=== PATIENT | male | born 1930 | race Caucasian/White ===

== ENCOUNTER 2016-12-12 09:44 | Emergency (ER) | payer MEDICARE, OTHER ==
[~2016-12-12] VITALS: Ht 175.3 cm; Wt 102.1 kg
[~2016-12-12 09:44] MED LIST: ACETAMINOPHEN325 M1 PO; CITRUCEL479 GM PO; COSAMIN DS CAP1 EACH PO; LOVENOX60 MG SUB-Q; MEMANTINE HCL5 MG PO; MULTI VITAMIN1 EACH PO; OXYCODONE HCL10 MG PO; PERCOCET 5-3251 EACH PO; POLYETHYLENE G255 GM PO; PRILOSEC20 MG PO; PRILOSEC40 MG PO; PROVENTIL HFA6.7 GM INH; VESICARE5 MG PO; WARFARIN SODIU7.5 MG PO; WARFARIN SODIUM5 MG PO
[2016-12-12] MEDS ORDERED: NORCO 5-325 TA1 EACH PO (11:00)
== END 2016-12-12 11:12 | disposition home or self-care (01) ==
LOC: ED 09:44
DX: M79.671 Pain in right foot (principal); I48.91 Unspecified atrial fibrillation; K21.9 Gastro-esophageal reflux disease without esophagitis; E78.5 Hyperlipidemia, unspecified; Z87.891 Personal history of nicotine dependence; Z88.5 Allergy status to narcotic agent; Z79.891 Long term (current) use of opiate analgesic; Z79.899 Other long term (current) drug therapy
CPT/HCPCS: 36415; 73630; 84550; 96372; 99283; J1885

== ENCOUNTER 2017-12-20 12:21 | Emergency (ER) | payer MEDICARE, OTHER ==
[~2017-12-20] VITALS: Ht 175.3 cm; Wt 102.1 kg
[~2017-12-20 12:21] MED LIST changes: +NORCO 5-325 TA1 EACH PO
[2017-12-20] MEDS ORDERED: DULCOLAX STOOL100 M1 PO (13:56)
[2017-12-20] MEDS ORDERED: ENULOSE10 GM/15 M PO (13:56)
== END 2017-12-20 14:49 | disposition home or self-care (01) ==
LOC: ED 12:21
DX: K59.00 Constipation, unspecified (principal); K21.9 Gastro-esophageal reflux disease without esophagitis; Z88.5 Allergy status to narcotic agent; Z88.8 Allergy status to other drugs, medicaments and biological substances; Z79.01 Long term (current) use of anticoagulants; Z79.899 Other long term (current) drug therapy
CPT/HCPCS: 74022; 99283

== ENCOUNTER 2018-03-08 10:07 | Emergency (ER) | payer MEDICARE, OTHER ==
[~2018-03-08] VITALS: Ht 175.3 cm; Wt 102.1 kg
--- OUTSIDE RECORDS SUMMARY | ~2018-03-08 | XMS | Clinical Summary ---
Demographics + + + | Address | [address] | | | [place] [address] | + + + | Home Phone | | + + + | Preferred Language | Unknown | + + + | Marital Status | | + + + | Bahai Affiliation | 1028 | + + + | Race | Unknown | + + + | Ethnic Group | Unknown | + + + Author + + + | Author | [facility] | | | and [place] | + + + | Organization | [facility] | | | and [place]ana [...] Team Providers + +------+ + | Care Beading Machine Operator Name | Role | Phone | + [...]
--- OUTSIDE RECORDS SUMMARY | ~2018-03-08 | XMS | Clinical Summary ---
Demographics + + + | Address | [address] | | | [place] [address] | + + + | Home Phone | | + + + | Preferred Language | Unknown | + + + | Marital Status | | + + + | Sabianist Affiliation | 1028 | + + + | Race | Unknown | + + + | Ethnic Group | Unknown | + + + Author + + + | Author | [facility] | | | and [place] | + + + | Organization | [facility] | | | and [place]ana [...] Team Providers + +------+ + | Care Driller'S Offsider Name | Role | Phone | + [...]
[~2018-03-08 10:07] MED LIST changes: +DULCOLAX STOOL100 M1 PO; +ENULOSE10 GM/15 M PO
[2018-03-08] MEDS ORDERED: PREDNISONE20 MG PO (12:39)
[2018-03-08] MEDS ORDERED: DOXYCYCLINE HY100 MG PO (12:39)
== END 2018-03-08 13:20 | disposition home or self-care (01) ==
LOC: ED 10:07
DX: S51.012A Laceration without foreign body of left elbow, initial encounter (principal); S80.02XA Contusion of left knee, initial encounter; J44.1 Chronic obstructive pulmonary disease with (acute) exacerbation; R53.1 Weakness; Z88.5 Allergy status to narcotic agent; Z88.7 Allergy status to serum and vaccine; Z79.01 Long term (current) use of anticoagulants; Z79.899 Other long term (current) drug therapy; W19.XXXA Unspecified fall, initial encounter
CPT/HCPCS: 70450; 71046; 73560; 80053; 85025; 85610; 94640; 99284; J7512

== ENCOUNTER 2018-09-03 09:26 | Emergency (ER) | payer MEDICARE, OTHER ==
[~2018-09-03] VITALS: Ht 175.3 cm; Wt 102.1 kg
--- OUTSIDE RECORDS SUMMARY | ~2018-09-03 | XMS | Encounter Summary ---
Demographics + + + | Address | [address] | | | [place] [address] | + + + | Home Phone | | + + + | Preferred Language | Unknown | + + + | Marital Status | | + + + | Latter Day Affiliation | Unknown | + + + | Race | Unknown | + + + | Ethnic Group | Unknown | + + + Author + + + | Author | [facility] | + + + | Organization | [facility] | + + + | Address | Unknown | + + + | Phone | Unavailable | + + + Support + + +---------+ + | Name | Relationship | Address | Phone | + + +---------+ + | Tiffany Granados | ECON | Unknown | | + + +---------+ + Care Team Providers + +------+ + | Care Patient Financial Services Coordinator Name | Role | Phone | + +------+ + PCP | Unavailable | + +------+ + Encounter Details +--------+ + + + + | Date | Type | Department | Care Team | Description | +--------+ + + + + | 07/08/ | Ancillary | [facility] | Ibrahima Hooper, | Congestive heart | | 2019 | Orders | ECHO | [address], | failure, unspecified | | | | | [address], | HF chronicity, | | | | | [place] [address] | unspecified heart | | | | | [phone] | failure type (HCC) | | | | | | | +--------+ + + + + Social History + +-------+ +--------+------+ | Tobacco Use | Types | Packs/Day | Years | Date | | | | | Used | | + +-------+ +--------+------+ | Never Assessed | | | | | + +-------+ +--------+------+ + + + | Sex Assigned at | Date Recorded | | | | + + + | Not on file | | + + + as of this encounter Plan of Treatment +--------+ + + + + | Date | Type | Specialty | Care Team | Description | +--------+ + + + + | 10/23/ | Initial | Cardiology | Jhonatan Villareal, | | | 2019 | consult | | MD [address] | | | | | | Dr [address] | | | | | | [place] [address] | | | | | | [phone] | | | | | | | | +--------+ + + + + as of this encounter Results ECHO outside interpretation standard (07/08/2018 5:35 PM) + + + | Impressions | Performed At | + + + | 1. Overall left ventricular systolic function is normal with, an EF | [facility] | | between 60 - 65 %. Normal left ventricular cavity size and wall | RADIOLOGY | | thickness. 2. The right ventricle is mildly enlarged. 3. The left | | | atrium is moderately enlarged. The right atrium is moderately enlarged | | | 4. There is mild aortic regurgitation. 5. Mild mitral regurgitation | | | is present. 6. The right ventricular systolic pressure (pulmonary | | | artery systolic pressure), as measured by Doppler, is 48.66mmHg. | | + + + + + + | Narrative | Performed At | + + + | Patient Name: Diallo Granados Date of : 1930 | [facility] | | Performing Physician: AYANNA CARMEN MD | RADIOLOGY | | | | | INDICATIONS CHF CONCLUSIONS 1. Overall | | | left ventricular systolic function is normal with, an EF between 60 - | | | 65 %. Normal left ventricular cavity size and wall thickness. 2. | | | The right ventricle is mildly enlarged. 3. The left atrium is | | | moderately enlarged. The right atrium is moderately enlarged 4. There | | | is mild aortic regurgitation. 5. Mild mitral regurgitation is | | | present. 6. The right ventricular systolic pressure (pulmonary artery | | | systolic pressure), as measured by Doppler, is 48.66mmHg. | | | FINDINGS -------- ECG rhythm: Atrial fibrillation. Study: A | | | 2-dimensional transthoracic echocardiogram with m-mode, spectral and | | | color flow Doppler was perfomed. Study: This was a technically | | | adequate study. Left Ventricle: Overall left ventricular systolic | | | function is normal with, an EF between 60 - 65 %. Left Ventricle: | | | The left ventricle cavity size is normal. Left Ventricle: Left | | | ventricular wall thickness is normal. Right Ventricle: The right | | | ventricle is mildly enlarged. Right Ventricle: The right ventricular | | | systolic function is normal. Left Atrium: The left atrium is | | | moderately enlarged. Right Atrium: The right atrium is moderately | | | enlarged. Aortic Valve: Aortic valve is mildly thickened. Aortic | | | Valve: The aortic valve is mildly calcified. Aortic Valve: There is | | | mild aortic regurgitation. Aortic Valve: There is no evidence of | | | aortic stenosis. Aortic Valve: The aortic valve appears to be | | | trileaflet. Mitral Valve: Normal appearing mitral valve. Mitral | | | Valve: Mild mitral regurgitation is present. Tricuspid Valve: The | | | tricuspid valve appears structurally normal. Tricuspid Valve: Mild | | | tricuspid regurgitation present. Tricuspid Valve: The right | | | ventricular systolic pressure (pulmonary artery systolic pressure), as | | | measured by Doppler, is 48.66mmHg. Pulmonic Valve: The pulmonic | | | valve was not well visualized. Pulmonic Valve: Trace pulmonic | | | regurgitation. Pericardium: There is no pericardial effusion. | | | IVC/Hepatic Veins: The inferior vena cava is normal in size and | | | collapses > 50 % with sniff, indicating normal central venous | | | pressures. Aorta: The aortic root, ascending aorta and aortic arch | | | are normal. Mass: No mass visualized Thrombus: No clot visualized | | | Thrombus: No vegetation visualized. Septum: No ASD observed. | | | Septum: No VSD observed. MEASUREMENTS Ao asc: | | | 3.13 cm Ao sinus: 3.[address] junct: 2.36 cm IVC: | | | 2.54 cm LA Diam: 5.45 cm EDV(Teich): 92.57 ml IVSd: | | | 0.81 cm LVIDd: 4.50 cm LVPWd: 0.83 cm %FS: 26.04 % | | | EF(Teich): 51.27 % ESV(Teich): 45.10 ml LVIDs: 3.32 cm | | | SV(Teich): 47.47 ml RVIDd: 4.05 cm LVEF MOD A2C: 58.12 % | | | SV MOD A2C: 41.77 ml LVEF MOD A4C: 57.02 % SV MOD A4C: | | | 43.17 ml EF Biplane: 56.43 % LVEDV MOD BP: 73.83 ml LVESV | | | MOD BP: 32.16 ml LVEDV MOD A2C: 71.87 ml LVLd A2C: 6.94 | | | cm LVEDV MOD A4C: 75.71 ml LVLd A4C: 6.91 cm LVESV MOD | | | A2C: 30.09 ml LVLs A2C: 6.11 cm LVESV MOD A4C: 32.53 ml | | | LVLs A4C: 5.75 cm LAESV(A-L): 102.79 ml LAESV Index | | | (A-L): 46.51 ml/m2 LAAs A2C: 27.92 cm2 LAESV A-L A2C: | | | 95.87 ml LALs A2C: 6.90 cm LAAs A4C: 25.79 cm2 LAESV A-L | | | A4C: 94.92 ml LALs A4C: 5.94 cm RAAs: 26.13 cm2 RAESV | | | A-L: 89.64 ml RAESV MOD: 89.03 ml RALs: 6.46 cm | | | TAPSE: 1.89 cm AV maxP.92 mmHg AV meanP.80 mmHg | | | AV Vmax: 1.40 m/s AV Vmean: 1.05 m/s AV VTI: 26.32 cm | | | LVOT maxP.81 mmHg LVOT meanP.69 mmHg LVOT Vmax: | | | 0.83 m/s LVOT Vmean: 0.63 m/s LVOT VTI: 17.19 cm MV E | | | Shiva: 1.08 m/s MV DecT: 161.11 ms Septal e': 0.08 m/s | | | Septal E/e': 12.16 Lateral e': 0.11 m/s Lateral E/e': | | | 9.62 RAP: 5 mmHg RVSP: 48.66 mmHg TR maxP.66 mmHg | | | TR Vmax: 3.30 m/s RV s': 0.10 m/s Appointment Coordinator: DESEAN | | | Authenticated by: AYANNA CARMEN MD Report Date/Time: -- | | | [id number] | | + + + + + | Procedure Note | + + | Travis, Rad Results In - 07/09/2018 6:01 PM PST Patient Name: Cee Granados of | | : 1930ccession: [id number] Physician: AYANNA CARMEN MD | | INDICATIONS CHF | | CONCLUSIONS 1. Overall left ventricular systolic function is normal with, an | | EF between 60 - 65 %. Normal left ventricular cavity size and wall thickness. 2. The | | right ventricle is mildly enlarged.3. The left atrium is moderately enlarged. The right | | atrium is moderately enlarged4. There is mild aortic regurgitation.5. Mild mitral | | regurgitation is present.6. The right ventricular systolic pressure (pulmonary artery | | systolic pressure), as measured by Doppler, is 48.66mmHg.FINDINGS--------ECG rhythm: | | Atrial fibrillation.Study: A 2-dimensional transthoracic echocardiogram with m-mode, | | spectral and color flow Doppler was perfomed. Study: This was a technically adequate | | study.Left Ventricle: Overall left ventricular systolic function is normal with, an EF | | between 60 - 65 %. Left Ventricle: The left ventricle cavity size is normal. Left | | Ventricle: Left ventricular wall thickness is normal.Right Ventricle: The right | | ventricle is mildly enlarged. Right Ventricle: The right ventricular systolic function | | is normal.Left Atrium: The left atrium is moderately enlarged.Right Atrium: The right | | atrium is moderately enlarged.Aortic Valve: Aortic valve is mildly thickened. Aortic | | Valve: The aortic valve is mildly calcified. Aortic Valve: There is mild aortic | | regurgitation. Aortic Valve: There is no evidence of aortic stenosis. Aortic Valve: The | | aortic valve appears to be trileaflet.Mitral Valve: Normal appearing mitral valve. | | Mitral Valve: Mild mitral regurgitation is present.Tricuspid Valve: The tricuspid valve | | appears structurally normal. Tricuspid Valve: Mild tricuspid regurgitation present. | | Tricuspid Valve: The right ventricular systolic pressure (pulmonary artery systolic | | pressure), as measured by Doppler, is 48.66mmHg.Pulmonic Valve: The pulmonic valve was | | not well visualized. Pulmonic Valve: Trace pulmonic regurgitation.Pericardium: There is | | no pericardial effusion.IVC/Hepatic Veins: The inferior vena cava is normal in size and | | collapses > 50 % with sniff, indicating normal central venous pressures.Aorta: The | | aortic root, ascending aorta and aortic arch are normal.Mass: No mass | | visualizedThrombus: No clot visualized Thrombus: No vegetation visualized.Septum: No ASD | | observed. Septum: No VSD observed.MEASUREMENTS Ao asc: 3.13 cmAo sinus: | | 3.[address] junct: 2.36 cmIVC: 2.54 cmLA Diam: 5.45 cmEDV(Teich): 92.57 | | mlIVSd: 0.81 cmLVIDd: 4.50 cmLVPWd: 0.83 cm%FS: 26.04 %EF(Teich): 51.27 | | %ESV(Teich): 45.10 mlLVIDs: 3.32 cmSV(Teich): 47.47 mlRVIDd: 4.05 cmLVEF MOD | | A2C: 58.12 %SV MOD A2C: 41.77 mlLVEF MOD A4C: 57.02 %SV MOD A4C: 43.17 mlEF | | Biplane: 56.43 %LVEDV MOD BP: 73.83 mlLVESV MOD BP: 32.16 mlLVEDV MOD A2C: 71.87 | | mlLVLd A2C: 6.94 cmLVEDV MOD A4C: 75.71 mlLVLd A4C: 6.91 cmLVESV MOD A2C: 30.09 | | mlLVLs A2C: 6.11 cmLVESV MOD A4C: 32.53 mlLVLs A4C: 5.75 cmLAESV(A-L): 102.79 | | mlLAESV Index (A-L): 46.51 ml/m2LAAs A2C: 27.92 [id number] A-L A2C: 95.87 mlLALs | | A2C: 6.90 cmLAAs A4C: 25.79 [id number] A-L A4C: 94.92 mlLALs A4C: 5.94 cmRAAs: | | 26.13 [id number] A-L: 89.64 mlRAESV MOD: 89.03 mlRALs: 6.46 cmTAPSE: 1.89 cmAV | | maxP.92 mmHgAV meanP.80 mmHgAV Vmax: 1.40 m/Manny Vmean: 1.05 m/Manny VTI: | | 26.32 cmLVOT maxP.81 mmHgLVOT meanP.69 mmHgLVOT Vmax: 0.83 m/sLVOT Vmean: | | 0.63 m/sLVOT VTI: 17.19 cmMV E Shiva: 1.08 m/sMV DecT: 161.11 msSeptal e': 0.08 | | m/sSeptal E/e': 12.16 Lateral e': 0.11 m/sLateral E/e': 9.62 RAP: 5 mmHgRVSP: | | 48.66 mmHgTR maxP.66 mmHgTR Vmax: 3.30 m/sRV s': 0.10 m/sSonographer: | | DBSAuthenticated by: AYANNA CARMEN MDReport Date/Time: -- | | [id number]:59:31IMPRESSION:1. Overall left ventricular systolic function is normal | | with, an EF between 60 - 65 %. Normal left ventricular cavity size and wall thickness. | | 2. The right ventricle is mildly enlarged.3. The left atrium is moderately enlarged. The | | right atrium is moderately enlarged4. There is mild aortic regurgitation.5. Mild mitral | | regurgitation is present.6. The right ventricular systolic pressure (pulmonary artery | | systolic pressure), as measured by Doppler, is 48.66mmHg. | |Septum: No VSD observed. | | | |MEASUREMENTS | | | |Ao asc: 3.13 cm | |Ao sinus: 3.50 cm | |Ao st junct: 2.36 cm | |IVC: 2.54 cm | |LA Diam: 5.45 cm | |EDV(Teich): 92.57 ml | |IVSd: 0.81 cm | |LVIDd: 4.50 cm | |LVPWd: 0.83 cm | |%FS: 26.04 % | |EF(Teich): 51.27 % | |ESV(Teich): 45.10 ml | |LVIDs: 3.32 cm | |SV(Teich): 47.47 ml | |RVIDd: 4.05 cm | |LVEF MOD A2C: 58.12 % | |SV MOD A2C: 41.77 ml | |LVEF MOD A4C: 57.02 % | |SV MOD A4C: 43.17 ml | |EF Biplane: 56.43 % | |LVEDV MOD BP: 73.83 ml | |LVESV MOD BP: 32.16 ml | |LVEDV MOD A2C: 71.87 ml | |LVLd A2C: 6.94 cm | |LVEDV MOD A4C: 75.71 ml | |LVLd A4C: 6.91 cm | |LVESV MOD A2C: 30.09 ml | |LVLs A2C: 6.11 cm | |LVESV MOD A4C: 32.53 ml | |LVLs A4C: 5.75 cm | |LAESV(A-L): 102.79 ml | |LAESV Index (A-L): 46.51 ml/m2 | |LAAs A2C: 27.92 cm2 | |LAESV A-L A2C: 95.87 ml | |LALs A2C: 6.90 cm | |LAAs A4C: 25.79 cm2 | |LAESV A-L A4C: 94.92 ml | |LALs A4C: 5.94 cm | |RAAs: 26.13 cm2 | |RAESV A-L: 89.64 ml | |RAESV MOD: 89.03 ml | |RALs: 6.46 cm | |TAPSE: 1.89 cm | |AV maxP.92 mmHg | |AV meanP.80 mmHg | |AV Vmax: 1.40 m/s | |AV Vmean: 1.05 m/s | |AV VTI: 26.32 cm | |LVOT maxP.81 mmHg | |LVOT meanP.69 mmHg | |LVOT Vmax: 0.83 m/s | |LVOT Vmean: 0.63 m/s | |LVOT VTI: 17.19 cm | |MV E Shiva: 1.08 m/s | |MV DecT: 161.11 ms | |Septal e': 0.08 m/s | |Septal E/e': 12.16 | |Lateral e': 0.11 m/s | |Lateral E/e': 9.62 | |RAP: 5 mmHg | |RVSP: 48.66 mmHg | |TR maxP.66 mmHg | |TR Vmax: 3.30 m/s | |RV s': 0.10 m/s | | | |Appointment Coordinator: DBS | |Authenticated by: AYANNA CARMEN MD | |Report Date/Time: -- [id number]:31 | | | |IMPRESSION: | |1. Overall left ventricular systolic function is normal with, an EF between 60 - 65 %. Norm al left ventricular cavity size and wall thickness. | |2. The right ventricle is mildly enlarged. | |3. The left atrium is moderately enlarged. The right atrium is moderately enlarged | |4. There is mild aortic regurgitation. | |5. Mild mitral regurgitation is present. | |6. The right ventricular systolic pressure (pulmonary artery systolic pressure), as measure d by Doppler, is 48.66mmHg. | + + + + + + + | Performing | Address | City/State/Zipcode | Phone Number | | Organization | | | | + + + + + | [facility] | [address] | [place] [address] | | + + + + + in this encounter Visit Diagnoses + + | Diagnosis | + + | Congestive heart failure, unspecified HF chronicity, unspecified heart failure type | | (HCC) | + +"
--- OUTSIDE RECORDS SUMMARY | ~2018-09-03 | XMS | Clinical Summary ---
Demographics + + + | Address | [address] | | | [place] [address] | + + + | Home Phone | | + + + | Preferred Language | Unknown | + + + | Marital Status | | + + + | Taoism Affiliation | 1028 | + + + | Race | Unknown | + + + | Ethnic Group | Unknown | + + + Author + + + | Author | [facility] | | | and [place] | + + + | Organization | [facility] | | | and [place] | + + + | Address | Unknown | + + + | Phone | Unavailable | + + + Support + + +---------+ + | Name | Relationship | Address | Phone | + + +---------+ + | MARLEY DONATO | ECON | Unknown | | + + +---------+ + Care Team Providers + +------+ + | Care Roof Promenade Tile Setter Name | Role | Phone | + +------+ + PP | Unavailable | + +------+ + Allergies Not on File Current Medications Not on file Active Problems Not on file Social History + +-------+ +--------+------+ | Tobacco [...] on file | | + + + Plan of Treatment + + + + + | Health Maintenance | Due Date | Last Done | Comments | + + + + + | Vaccine: | | | | | Dtap/Tdap/Td (1 - | 0 | | | | Tdap) | | | | + + + + + | Vaccine: Zoster (1 | | | | | of 2) | 1 | | | + + + + + | Vaccine: | | | | | Pneumococcal 65+ | 6 | | | | Low/Medium Risk (1 | | | | | of 2 - PCV13) | | | | + + + + + | Vaccine: Influenza | | | | | (#1) | 8 | | | + + + + + Results Not on filefrom Last 3 Months"
--- OUTSIDE RECORDS SUMMARY | ~2018-09-03 | XMS | Encounter Summary ---
Demographics + + + | Address | [address] | | | [place] [address] | + + + | Home Phone | | + + + | Preferred Language | Unknown | + + + | Marital Status | | + + + | Moravian Affiliation | Unknown | + + + | Race | Unknown | + + + | Ethnic Group | Unknown | + + + Author + + + | Author | [facility] | + + + | Organization | [facility] | + + + | Address | Unknown | + + + | Phone | Unavailable | + + + Support + + +---------+ + | Name | Relationship | Address | Phone | + + +---------+ + | Tiffany Granados | ECON | Unknown | | + + +---------+ + Care Team Providers + +------+ + | Care Excelsior Machine Feeder Name | Role | Phone | + [...] chronicity, | | | | | [place] [address] | unspecified heart | | | | | [phone] | failure type (HCC) | | | [...] [place] | | | | | | [place] [address] | | | | | | [phone] | | | | | | | [...] Diallo Granados Date of : 1930 | [facility] | | Performing Physician: AYANNA CARMEN MD [...] Vmax: 3.30 m/s RV s': 0.10 m/s Soft Iron Inspector: DESEAN | | | Authenticated by: AYANNA CARMEN MD Report Date/Time: -- | | | [id number]:31 | | + + + + + | Procedure Note | + + | Travis, Rad Results In - 07/09/2018 6:01 PM PST Patient Name: Cee Granados of | | : 1930ccession: [id number] Physician: AYANNA CARMEN MD | | INDICATIONS [...] mlLAESV Index (A-L): 46.51 ml/m2LAAs A2C: 27.92 [id number] A-L A2C: 95.87 mlLALs | | A2C: 6.90 cmLAAs A4C: 25.79 qn1HRCZB A-L A4C: 94.92 mlLALs A4C: 5.94 cmRAAs: | | 26.13 [id number] A-L: 89.64 mlRAESV MOD: 89.03 mlRALs: 6.46 [...] AYANNA CARMEN MDReport Date/Time: -- | | [id number]:31IMPRESSION:1. Overall left ventricular systolic function is normal [...] |RV s': 0.10 m/s | | | |Soft Iron Inspector: DBS | |Authenticated by: AYANNA CARMEN MD | |Report Date/Time: -- [id number]:31 | | | |IMPRESSION: | |1. Overall [...] [facility] | [address] | [place] [address] | | + + + + + in this encounter Visit Diagnoses + + | Diagnosis | + + | Congestive heart failure, unspecified HF chronicity, unspecified heart failure type | | (HCC) | + +"
--- OUTSIDE RECORDS SUMMARY | ~2018-09-03 | XMS | Clinical Summary ---
Demographics + + + | Address | [address] | | | [place] [address] | + + + | Home Phone | | + + + | Preferred Language | Unknown | + + + | Marital Status | | + + + | Mosque Affiliation | Unknown | + + + | Race | Unknown | + + + | Ethnic Group | Unknown | + + + Author + + + | Author | [facility] | + + + | Organization | [facility] | + + + | Address | Unknown | + + + | Phone | Unavailable | + + + Support + + +---------+ + | Name | Relationship | Address | Phone | + + +---------+ + | Tiffany Donato | ECON | Unknown | | + + +---------+ + Care Team Providers + +------+ + | Care Graphic Design Specialist Name | Role | Phone | + +------+ + PP | Unavailable | + +------+ + Allergies Not on File Current Medications Not on file Active Problems Not on file Encounters +--------+ + + + + | Date | Type | Specialty | Care Team | Description | +--------+ + + + + | 07/16/ | Documentati | | Jhonatan Villareal, | | | 2018 | on Only | | MD | | +--------+ + + + + | 07/08/ | Ancillary | | Ibrahima Hooper, | Congestive heart | | 2018 | Procedure | | MD | failure, unspecified | | | | | | HF chronicity, | | | | | | unspecified heart | | | | | | failure type (HCC) | +--------+ + + + + | 07/08/ | Ancillary | | Ibrahima Hooper, | Congestive heart | | 2019 | Orders | | MD | failure, unspecified | | | | | | HF chronicity, | | | | | | unspecified heart | | | | | | failure type (HCC) | +--------+ + + + + from Last 3 Months Social History + +-------+ +--------+------+ | Tobacco [...] | + + + Plan of Treatment +--------+ + + + + | Date | Type | Specialty | Care Team | Description | +--------+ + + + + | 10/23/ | Initial | | Jhonatan Villareal, | | | 2019 | consult | | MD [address] | | | | | | Dr [address], | | | | | | [place] [address] | | | | | | [phone] | | | | | | | | +--------+ + + + + + + + + + | Health [...] | | + + + + + Procedures + +--------+ + + + | Procedure Name | Priori | Date/Time | Associated Diagnosis | Comments | | | ty | | | | + +--------+ + + + | ECHO OUTSIDE | Routin | 07/08/2018 | Congestive heart | Results for this | | INTERPRETATION | e | 5:35 PM | failure, unspecified | procedure are in the | | STANDARD | | PST | HF chronicity, | results section. | | | | | unspecified heart | | | | | | failure type (HCC) | | + +--------+ + + + from Last 3 Months Results ECHO outside interpretation standard (07/08/2018 5:35 [...] | + + + | Patient Name: Elaine Donato Date of : 1930 | [facility] | | Performing Physician: AYANNA CARMEN [...] Vmax: 3.30 m/s RV s': 0.10 m/s Route Rider Supervisor: DESEAN | | | Authenticated by: AYANNA CARMEN MD Report Date/Time: -- | | | [id number]:31 | | + + + + + | Procedure Note | + + | Travis, Rad Results In - 07/09/2018 6:01 PM PST Patient Name: Cee Donato of | | : 1930ccession: [id number] Physician: AYANNA CARMEN MD | | INDICATIONS [...] mlLAESV Index (A-L): 46.51 ml/m2LAAs A2C: 27.92 [id number] A-L A2C: 95.87 mlLALs | | A2C: 6.90 cmLAAs A4C: 25.79 at6XJOEL A-L A4C: 94.92 mlLALs A4C: 5.94 cmRAAs: | | 26.13 [id number] A-L: 89.64 mlRAESV MOD: 89.03 mlRALs: 6.46 [...] AYANNA CARMEN MDReport Date/Time: -- | | [id number]:31IMPRESSION:1. Overall left ventricular systolic function is normal [...] |RV s': 0.10 m/s | | | |Route Rider Supervisor: DBS | |Authenticated by: AYANNA CARMEN MD | |Report Date/Time: -- [id number]:31 | | | |IMPRESSION: | |1. Overall [...] | + + + + + | [facility] | [address] | [place] [address] | | + + + + + from Last 3 Months Insurance + +--------+ +------+-------+ + | Payer | Benefi | Subscriber | Type | Phone | Address | | | t Plan | ID | | | | | | / | | | | | | | Group | | | | | + +--------+ +------+-------+ + | MEDICARE | MEDICA | [id number] | | | [address] | | | RE | | | | [place] [address] | | | IP-OP | | | | | + +--------+ +------+-------+ + | MULTIPLAN | MULTIP | [id number] | | | | | | KAREN - | | | | | | | MAIL | | | | | | | HANDLE | | | | | | | RS | | | | | | | BENEFI | | | | | | | T | | | | | + +--------+ +------+-------+ + + +--------+ +--------+ + + | Guarantor Name | Accoun | Relation to | Date | Phone | Billing Address | | | t Type | Patient | of | | | | | | | | | | + +--------+ +--------+ + + | ELAINE DONATO | Person | Self [birth year] Home: | [address] | | | al/Fam | | 1930 | [phone] [address] [place], [place] | | | kaden | | | [phone] | + +--------+ +--------+ + +"
--- OUTSIDE RECORDS SUMMARY | ~2018-09-03 | XMS | Encounter Summary ---
Demographics + + + | Address | [address] | | | [place] [address] | + + + | Home Phone | | + + + | Preferred Language | Unknown | + + + | Marital Status | | + + + | Muslim Affiliation | Unknown | + + + | Race | Unknown | + + + | Ethnic Group | Unknown | + + + Author + + + | Author | [facility] | + + + | Organization | [facility] | + + + | Address | Unknown | + + + | Phone | Unavailable | + + + Support + + +---------+ + | Name | Relationship | Address | Phone | + + +---------+ + | Tiffany Granados | ECON | Unknown | | + + +---------+ + Care Team Providers + +------+ + | Care Filling Machine Set Up Mechanic Name | Role | Phone | + +------+ + PCP | Unavailable | + +------+ + Encounter Details +--------+ + + + + | Date | Type | Department | Care Team | Description | +--------+ + + + + | 07/16/ | Documentati | [facility] Shepherd | Jhonatan Villareal, | | | 2018 | on Only | Genevieve Zhang | [address] | | | | | [address] | [address] [place], | | | | | [place], [place] | [place] [address] | | | | | [address] | [phone] | | | | | [phone] | | | +--------+ + + + [...] [place], | | | | | | [place] [address] | | | | | | [phone] | | | | | | | | +--------+ + + + + as of this encounter Visit Diagnoses Not on filein this encounter"
--- OUTSIDE RECORDS SUMMARY | ~2018-09-03 | XMS | Encounter Summary ---
Demographics + + + | Address | [address] | | | [place] [address] | + + + | Home Phone | | + + + | Preferred Language | Unknown | + + + | Marital Status | | + + + | Moravian Affiliation | Unknown | + + + | Race | Unknown | + + + | Ethnic Group | Unknown | + + + Author + + + | Author | [facility] | + + + | Organization | [facility] | + + + | Address | Unknown | + + + | Phone | Unavailable | + + + Support + + +---------+ + | Name | Relationship | Address | Phone | + + +---------+ + | Tiffany Granados | ECON | Unknown | | + + +---------+ + Care Team Providers + +------+ + | Care Assisted Living Assistant Name | Role | Phone | + +------+ + PCP | Unavailable | + +------+ + Encounter Details +--------+ + + + + | Date | Type | Department | Care Team | Description | +--------+ + + + + | 07/08/ | Ancillary | [facility] BORJAS | Ibrahima Hooper, | Congestive heart | | 2019 | Procedure | ECHO | [address], | failure, unspecified | | | | | [address] [place], | HF chronicity, | | | | | [place] [address] | unspecified heart | | | | | [phone] | failure type (HCC) | | | [...] [place] | | | | | | [place] [address] | | | | | | [phone] | | | | | | | | +--------+ + + + + as of this encounter Procedures + +--------+ + + + | [...] | | + +--------+ + + + in this encounter Results ECHO outside interpretation standard [...] Diallo Granados Date of : 1930 | [facility] | | Performing Physician: AYANNA CARMEN [...] Vmax: 3.30 m/s RV s': 0.10 m/s Tribal Delegate: DBS | | | Authenticated by: AYANNA CARMEN MD Report Date/Time: -- | | | [id number]:31 | | + + + + + | Procedure Note | + + | Jose Robles In - 07/09/2018 6:01 PM PST Patient Name: Cee Granados of | | : 1930ccession: [id number] Physician: AYANNA CARMEN MD | | INDICATIONS [...] mlLAESV Index (A-L): 46.51 ml/m2LAAs A2C: 27.92 [id number] A-L A2C: 95.87 mlLALs | | A2C: 6.90 cmLAAs A4C: 25.79 [id number] A-L A4C: 94.92 mlLALs A4C: 5.94 cmRAAs: | | 26.13 [id number] A-L: 89.64 mlRAESV MOD: 89.03 mlRALs: 6.46 [...] AYANNA CARMEN MDReport Date/Time: -- | | [id number]:31IMPRESSION:1. Overall left ventricular systolic function is normal [...] |RV s': 0.10 m/s | | | |Tribal Delegate: DBS | |Authenticated by: AYANNA CARMEN MD | |Report Date/Time: -- [id number]:31 | | | |IMPRESSION: | |1. Overall [...] | + + + + + | [facility] | [address] | [place] [address] | | + + + + + in this encounter Visit Diagnoses + + | Diagnosis | + + | Congestive heart failure, unspecified HF chronicity, unspecified heart failure type | | (HCC) | + +"
--- OUTSIDE RECORDS SUMMARY | ~2018-09-03 | XMS | Encounter Summary ---
Demographics + + + | Address | [address] | | | [place] [address] | + + + | Home Phone | | + + + | Preferred Language | Unknown | + + + | Marital Status | | + + + | Gnosticist Affiliation | Unknown | + + + | Race | Unknown | + + + | Ethnic Group | Unknown | + + + Author + + + | Author | [facility] | + + + | Organization | [facility] | + + + | Address | Unknown | + + + | Phone | Unavailable | + + + Support + + +---------+ + | Name | Relationship | Address | Phone | + + +---------+ + | Tiffany Granados | ECON | Unknown | | + + +---------+ + Care Team Providers + +------+ + | Care Sales Representative Health Insurance Name | Role | Phone | + +------+ + PCP | Unavailable | + +------+ + Encounter Details +--------+ + + + + | Date | Type | Department | Care Team | Description | +--------+ + + + + | 07/16/ | Documentati | MARSHALL hSepherd | Jhonatan Villareal, | | | 2018 | on Only | Genevieve Zhang | [address] | | | | | [address] | [address] [place], | | | | | [place], [place] | [place] [address] | | | | | [address] | [phone] | | | | | [phone] | | | +--------+ + + + [...] | | | | | | [place] [address] | | | | | | [phone] | | | | | | | | +--------+ + + + + as of this encounter Visit Diagnoses Not on filein this encounter"
--- OUTSIDE RECORDS SUMMARY | ~2018-09-03 | XMS | Encounter Summary ---
Demographics + + + | Address | [address] | | | [place] [address] | + + + | Home Phone | | + + + | Preferred Language | Unknown | + + + | Marital Status | | + + + | Yazidism Affiliation | Unknown | + + + | Race | Unknown | + + + | Ethnic Group | Unknown | + + + Author + + + | Author | [facility] | + + + | Organization | [facility] | + + + | Address | Unknown | + + + | Phone | Unavailable | + + + Support + + +---------+ + | Name | Relationship | Address | Phone | + + +---------+ + | Tiffany Granados | ECON | Unknown | | + + +---------+ + Care Team Providers + +------+ + | Care Interactive Developer Name | Role | Phone | + [...] chronicity, | | | | | [place] [address] | unspecified heart | | | | | [phone] | failure type (HCC) | | | [...] [place] | | | | | | [place] [address] | | | | | | [phone] | | | | | | | [...] Diallo Granados Date of : 1930 | [facility] | | Performing Physician: AYANNA CARMEN MD [...] Vmax: 3.30 m/s RV s': 0.10 m/s Caramel Candy Maker: DBS | | | Authenticated by: AYANNA CARMEN MD Report Date/Time: -- | | | [id number]:31 | | + + + + + | Procedure Note | + + | Jose Robles In - 07/09/2018 6:01 PM PST Patient Name: Cee Granados of | | : 1930ccession: [id number] Physician: AYANNA CARMEN MD | | INDICATIONS [...] mlLAESV Index (A-L): 46.51 ml/m2LAAs A2C: 27.92 [id number] A-L A2C: 95.87 mlLALs | | A2C: 6.90 cmLAAs A4C: 25.79 [id number] A-L A4C: 94.92 mlLALs A4C: 5.94 cmRAAs: | | 26.13 [id number] A-L: 89.64 mlRAESV MOD: 89.03 mlRALs: 6.46 [...] AYANNA CARMEN MDReport Date/Time: -- | | [id number]:59:31IMPRESSION:1. Overall left ventricular systolic function is normal [...] |RV s': 0.10 m/s | | | |Caramel Candy Maker: DBS | |Authenticated by: AYANNA CARMEN MD | |Report Date/Time: -- [id number]:59:31 | | | |IMPRESSION: | |1. Overall [...] | + + + + + | [facility] | [address] | [place] [address] | | + + + + + in this encounter Visit Diagnoses + + | Diagnosis | + + | Congestive heart failure, unspecified HF chronicity, unspecified heart failure type | | (HCC) | + +"
--- OUTSIDE RECORDS SUMMARY | ~2018-09-03 | XMS | Clinical Summary ---
Demographics + + + | Address | [address] | | | [place] [address] | + + + | Home Phone | | + + + | Preferred Language | Unknown | + + + | Marital Status | | + + + | Gnosticism Affiliation | 1028 | + + + | Race | Unknown | + + + | Ethnic Group | Unknown | + + + Author + + + | Author | [facility] | | | and Lonana | + + + | Organization | [facility] | | | and Lonana [...] Team Providers + +------+ + | Care Supervisor Production Name | Role | Phone | + [...]
--- OUTSIDE RECORDS SUMMARY | ~2018-09-03 | XMS | Clinical Summary ---
Demographics + + + | Address | [address] | | | [place] [address] | + + + | Home Phone | | + + + | Preferred Language | Unknown | + + + | Marital Status | | + + + | Spiritism Affiliation | Unknown | + + + | Race | Unknown | + + + | Ethnic Group | Unknown | + + + Author + + + | Author | [facility] | + + + | Organization | [facility] | + + + | Address | Unknown | + + + | Phone | Unavailable | + + + Support + + +---------+ + | Name | Relationship | Address | Phone | + + +---------+ + | Tiffany Donato | ECON | Unknown | | + + +---------+ + Care Team Providers + +------+ + | Care Family Living Educator Name | Role | Phone | + [...] [place], | | | | | | [place] [address] | | | | | | [phone] | | | | | | | [...] Elaine Donato Date of : 1930 | [facility] | | Performing Physician: AYANNA CARMEN [...] Vmax: 3.30 m/s RV s': 0.10 m/s Mandrel Press Hand: DESEAN | | | Authenticated by: AYANNA CARMEN MD Report Date/Time: -- | | | [id number]:31 | | + + + + + | Procedure Note | + + | Travis, Rad Results In - 07/09/2018 6:01 PM PST Patient Name: Cee Donato of | | : 1930ccession: [id number] Physician: AYANNA CARMEN MD | | INDICATIONS [...] mlLAESV Index (A-L): 46.51 ml/m2LAAs A2C: 27.92 [id number] A-L A2C: 95.87 mlLALs | | A2C: 6.90 cmLAAs A4C: 25.79 [id number] A-L A4C: 94.92 mlLALs A4C: 5.94 cmRAAs: | | 26.13 [id number] A-L: 89.64 mlRAESV MOD: 89.03 mlRALs: 6.46 [...] AYANNA CARMEN MDReport Date/Time: -- | | [id number]:59:31IMPRESSION:1. Overall left ventricular systolic function is normal [...] |RV s': 0.10 m/s | | | |Mandrel Press Hand: DBS | |Authenticated by: AYANNA CARMEN MD | |Report Date/Time: -- [id number]:59:31 | | | |IMPRESSION: | |1. Overall [...] [facility] | [address] | [place] [address] | | + + + + + [...] +------+-------+ + | MEDICARE | MEDICA | [id number] | | | [address] | | | RE | | | | [place] [address] | | | IP-OP | | | | | + +--------+ +------+-------+ + | MULTIPLAN | MULTIP | [id number] | | | | | | KAREN [...] Self | [birth year] | Home: | [address] | | | al/Fam | | 1930 | [phone] | [address] [place], [place] | | | [place] | | | [phone] | + +--------+ +--------+ + +"
[~2018-09-03 09:26] MED LIST changes: +DOXYCYCLINE HY100 MG PO; +MACROBID 100 M100 MG PO; +PREDNISONE20 MG PO
[2018-09-03] MEDS ORDERED: POTASSIUM CHLO20 ME1 PO (12:01)
[2018-09-03] MEDS ORDERED: FUROSEMIDE40 MG PO (12:01)
[2018-09-03] MEDS ORDERED: FAMOTIDINE40 MG PO (12:02)
[2018-09-03] MEDS ORDERED: JANTOVEN5 MG PO (12:02)
--- NOTE | 2018-09-03 19:56 | EKG ---
[facility] [address] [place] [address] Signed Atrial fibrillation Left axis deviation Right bundle branch block Inferior infarct , age undetermined Abnormal ECG When compared with ECG of 22-MAY-2016 11:26, Right bundle branch block has replaced Incomplete right bundle branch block Confirmed by JOE LOPEZ MD ([id number]) on 09/03/2018 7:56:14 PM Electronically Signed By: JOE LOPEZ MD 09/03/18 1956 PATIENT NAME: ELAINE DONATO Electrocardiogram DATE OF : 32 PHYSICIAN: JOE LOPEZ MD REPORT #: [id number] REPORT IS CONFIDENTIAL AND NOT TO BE RELEASED WITHOUT AUTHORIZATION
== END 2018-09-03 12:23 | disposition home or self-care (01) ==
LOC: ED 09:26
DX: I95.9 Hypotension, unspecified (principal); E86.0 Dehydration; I48.91 Unspecified atrial fibrillation; K21.9 Gastro-esophageal reflux disease without esophagitis; E78.5 Hyperlipidemia, unspecified; Z88.5 Allergy status to narcotic agent; Z91.09 Other allergy status, other than to drugs and biological substances; Z88.8 Allergy status to other drugs, medicaments and biological substances; Z79.01 Long term (current) use of anticoagulants; Z79.899 Other long term (current) drug therapy
CPT/HCPCS: 80053; 81001; 84484; 85025; 85610; 93005; 93010; 99285-25; J7030

== ENCOUNTER 2019-04-09 20:51 | Inpatient (IN) | payer MEDICARE, OTHER ==
[~2019-04-09] VITALS: Ht 175.3 cm; Wt 103.0 kg
[~2019-04-09 20:51] MED LIST changes: +CITALOPRAM HBR20 MG PO; +COUMADIN5 MG PO; +FAMOTIDINE40 MG PO; +FUROSEMIDE20 MG PO; +JANTOVEN5 MG PO; +K-TAB ER20 MEQ PO; +LASIX20 MG PO; +LEVOFLOXACIN750 MG PO; +OMEPRAZOLE40 MG PO; +POTASSIUM CHLO20 ME1 PO; +SERTRALINE HCL50 MG PO; +VITAMIN D31000 UNI1 PO
--- NOTE | 2019-04-10 01:55 | NUR ---
PT ARRIVED TO THE FLOOR. VS TAKEN. PRN PAIN MED PROVIDED. 3LNC, CPOX 90%. NO OTHER NEEDS AT THIS TIME. CALL LIGHT IN REACH.
--- NOTE | 2019-04-10 03:16 | NUR ---
PULSE OXIMETER ALARMING. SPO2 83%. PT AWAKENS EASILY TO VOICE, HOB ELEVATED. OXYGEN TITRATED TO 4L BY NC, SPO2 INCREASES TO 91% WITH CONT. PULSE OXIMETER. PT DROWSY, EYES CLOSED. CALL LIGHT IN REACH. BED ALARM ON.
--- NOTE | 2019-04-10 04:33 | NUR ---
PT RESTING IN BED. ASSESSMENT COMPLETED. CMS INTACT LLE. PAINFUL TO TOUCH OR MOVE. LLE EDEMA 2+, RLE EDEMA 3+. BRUISE ON LEFT ELBOW. PILLOWS USED FOR POSITION OF COMFORT. PT DROWSY AND FALLS ASLEEP FREQUENTLY. NO NEEDS AT THIS TIME. CALL LIGHT IN REACH.
--- NOTE | 2019-04-10 04:44 | NUR ---
PT BRIEF CHANGED. PT TOLERATED MOVEMENT POORLY. CPOX DOWN TO 80 DURING ACTIVITY. BACK UP TO 90% 4L NC AT REST. NO FURTHER NEEDS. CALL LIGHT IN REACH. BED ALARM ON.
--- NOTE | 2019-04-10 04:44 | NUR ---
PT BRIEF CHANGED. PT TOLERATED MOVEMENT POORLY. CPOX DOWN TO 80 DURING ACTIVITY. BACK UP TO 90% 6L NC AT REST. NO FURTHER NEEDS. CALL LIGHT IN REACH. BED ALARM ON.
--- NOTE | 2019-04-10 06:36 | NUR ---
PT SLEPT MOST OF SHIFT. CPOX 90% ON 4L NC. POSITIONED WITH PILLOWS TO SUPPORT HIP. PRN PAIN MEDS MANAGED PAIN WELL. CMS INTACT IN LEFT FOOT.
--- NOTE | 2019-04-10 07:05 | NUR ---
PATIENT SLEEPING IN BED. REPORT RECEIVED, ORDERS ACKNOWLEDGED. CPOX IN PLACE, 4LNC WITH SPO2 OF 94%. NS RUNNING AT 125 MLS/HR.
--- NOTE | 2019-04-10 08:20 | NUR ---
DR. OCAMPO IN ROOM WITH PATIENT. ASSESSMENT COMPLETE, WEAK RADIAL PULSES WITH A BP OF 90/51 (60). MD ORDER TO BOLUS REMAINING BAG OF NS AND RUN A BOLUS OF LR OVER AN HOUR, THEN RECHECK VITAL SIGNS. PATIENT REPORTS PAIN IN LEFT SHOULDER AND HAS RESTRICTED ROM ON LEFT SIDE. PATIENT IS CONFUSED, NOT ORIENTED TO PERSON, PLACE, OR TIME. WILL CONTINUE TO MONITOR.
--- NOTE | 2019-04-10 08:32 | NUR ---
JULIETTE RANGEL CALLED FOR UPDATE ON PT. PLAN OF CARE AND UPDATES DISCUSSED. REQUESTED POLST FORM AND MED REC TO BE FAXED TO HOSPITAL. BOTH RECIEVED. MED REC FAXED TO PHARMACY. POLST FORM PLACED IN CHART.
--- NOTE | 2019-04-10 09:30 | NUR ---
PATIENT BP REASSESSED AFTER LR BOLUS. MANUAL BP OF 72/46, WEAK RADIAL PULSES OF 80. DR. OCAMPO NOTIFIED. ADDITIONAL BOLUS OF LR ORDERED, ALONG WITH RIOS CATH. PATIENT DRAINING DARK YELLOW URINE. WILL CONTINUE TO MONITOR.
--- NOTE | 2019-04-10 10:45 | NUR ---
CALL RETURNED TO KAL OJEDA RN. UPDATE GIVEN REGARDING PATIENT CONDITION.
--- NOTE | 2019-04-10 11:15 | NUR ---
PATIENT SLEEPING IN BED WITH LR RUNNING AT 125 MLS/HR. BP OF 95/52, PULSE OF 80. 250 MLS OF LUCY URINE COLLECTED FROM RIOS. DR. OCAMPO NOTIFIED OF PATIENT CONDITION, WILL CONTINUE TO MONITOR.
[2019-04-10] MEDS ORDERED: LASIX20 MG PO (11:29)
[2019-04-10] MEDS ORDERED: NITROSTAT0.4 MG SL (11:37)
[2019-04-10] MEDS ORDERED: ASPERCREME 1035.4 GM TOP (11:38)
--- NOTE | 2019-04-10 11:39 | NUR ---
MED REC COMPLETE
--- NOTE | 2019-04-10 12:24 | NUR ---
PATIENT REPORTS PAIN OF 7/10, PRN PAIN MEDICATION GIVEN. LR RUNNING AT 125 MLS/HR. BP OF 109/59, PULSE OF 75 WITH STRONG RADIAL PULSES. PATIENT SITTING IN BED WATCHING TV. NO FURTHER NEEDS, CALL LIGHT WITHIN REACH.
--- NOTE | 2019-04-10 13:34 | NUR ---
RT IN ROOM TO ASSESS PATIENT. SPO2 OF 96% ON 4LNC. BP OF 120/69, WITH PULSE OF 67. RADIAL PULSES ARE FAINT AND THREADY. DR. OCAMPO UPDATED.
--- NOTE | 2019-04-10 13:49 | NUR ---
PATIENT RESTING IN BED. DAUGHTER IN ROOM. VITAL SIGNS AND I&O DONE.CALL LIGHT WITHIN REACH. NO OTHER NEEDS AT THIS TIME
--- NOTE | 2019-04-10 15:15 | NUR ---
PATIENT INCONTINENT OF STOOL, ATTENDS CHANGED. PATIENT REPORTS PAIN WITH MOVEMENT. SPO2 DROPPED TO 79% ON 4LNC WITH MOVEMENT. O2 INCREASED TO 6LNC, SPO2 CLIMBS TO 89%. DR OCAMPO AND CHARGE NURSE NOTIFIED. PATIENTS COLOR TURNED DUSKY DURING DESATURATION BUT RETURNED TO A PINK COLOR. OXYGEN TITRATED BACK DOWN TO 4LNC, SPO2 OF 91%. CALL LIGHT WITHIN REACH.
--- NOTE | 2019-04-10 15:51 | NUR ---
ORDER FOR UA. COLLECTED AND SENT TO LAB. IMAGING CALLED FOR CHEST XRAY.
--- NOTE | 2019-04-10 15:54 | NUR ---
Met with Diallo's daughter, Lisseth. Pt has had worsening dementia since the loss of his . Lives at [facility]. Daughter and siblings have been considering a chcf due his decline. Siblings live in the [place] area and have considered moving [place] to [place] to a [place] residence or a chcf. For now, would like him to go to [facility] on discharge.
--- NOTE | 2019-04-10 16:02 | NUR ---
IAMGING IN ROOM FOR CHEST XRAY.
--- NOTE | 2019-04-10 18:00 | NUR ---
DR OCAMPO NOTIFIED OF PATIENTS URINE OUTPUT. ORDER ACKNOWLEDGED TO GIVE 500 ML BOLUS OF LR AND CONTINUE LR AT 150 MLS/HR. PO INTAKE OF 400 MLS SINCE 1400. BP OF 102/57. WILL CONTINUE TO MONITOR.
--- NOTE | 2019-04-10 18:41 | NUR ---
LATE ENTRY FOR: 1400 REPOSITIONED AT 1400, NEW BED BLANKET PLACED UNDER HIM, WARM BLANKET PLACED AT LEFT HIP, OXYGEN TURNED UP TO 6L, SPO2 INCREASED TO 92%, HEAD ELEVATED TO 21%, PT DROWSY AND RESTING, DAUGHTER AT BEDSIDE, CALL LIGHT WITHIN REACH
--- NOTE | 2019-04-10 19:00 | NUR ---
SHIFT REPORT RECEIVED FROM [facility] СВЕТЛАНА MADERA AT BEDSIDE. PT RESTING IN BED, EYES CLOSED. RR WNL. CPOX IN PLACE, PT ON 6L OXYMASK. O2 SAT AND HR WNL. RIOS CATHETER IN PLACE. PT APPEARS COMFORTABLE, NO DISTRESS NOTED. CALL LIGHT IN REACH.
--- NOTE | 2019-04-10 19:40 | NUR ---
PT'S CPOX ALARMED, ASSISTED PT TO PUT OXYMASK BACK ON, HE DENIES FURTHER NEEDS. CALL LIGHT IS CLOSE.
--- NOTE | 2019-04-10 20:05 | NUR ---
PT'S IV PUMP WAS BEEPING, IT IS NOW INFUSING FINE. CALL LIGHT IS CLOSE. PT DENIES NEEDS.
--- NOTE | 2019-04-10 21:10 | NUR ---
CPOX WAS BEEPING, PLACED PT BACK ON OXYMASK. HE IS RESTING WITH EYES CLOSED. CALL LIGHT IS CLOSE.
--- NOTE | 2019-04-10 21:15 | NUR ---
PT PULSE OX ALARMING. WENT IN AND PUT OXY MASK BACK ON.
--- NOTE | 2019-04-10 21:45 | NUR ---
PT PULSE OX ALARMING. PUT MASK BACK ON. PT NOT WANTING TO WEAR IT.
--- NOTE | 2019-04-10 22:00 | NUR ---
PT PULSE OX ALARMING AGAIN. PUT OXY MASK BACK ON.
--- NOTE | 2019-04-10 22:00 | NUR ---
ASSESSMENT COMPLETE, MEDICATIONS GIVEN (SEE EMAR). PT APPEARS IN PAIN WITH MOVEMENT, FACIAL GRIMACING NOTED. PT DOES NOT VERBALLY RATE PAIN. SCHEDULED TYLENOL AND PRN OXYCODONE ADMINISTERED. PER TLEPHARMACY ILYA FERNANDES TO CRUSH SCHEDULED MEDS AND PRN OXYCODONE. PT TOLERATED MED ADMINISTRATION WELL, MEDS GIVEN IN PUDDING. NO DIFFICULTIES NOTED. WILL MONITOR. PT REPOSITONED IN BED. CPOX IN PLACE. VSS, PT ON 6L OXYMASK. 02 SAT AND HR WNL. CALL LIGHT IN REACH. BED ALARM ON FOR SAFETY.
--- NOTE | 2019-04-10 22:09 | NUR ---
PULSE OX GOING OFF AGAIN. PUT PT OXY MASK BACK ON.
--- NOTE | 2019-04-10 22:15 | NUR ---
PULSE OX ALARM GOING OFF AGAIN. PUT MASK BACK ON. PT TOLD ME I WAS " A PAIN IN HIS ASS"
--- NOTE | 2019-04-10 22:45 | NUR ---
ALARM GOING OFF AGAIN. PUT HIS OXY MASK BACK ON.
--- NOTE | 2019-04-10 23:00 | NUR ---
PULSE OX GOING OFF AGAIN. PUT MASK BACK ON.
--- NOTE | 2019-04-10 23:15 | NUR ---
PULSE OX ALARMING. PUT OXY MASK BACK ON. PT PULLED IT RIGHT BACK OFF. I PUT IT BACK ON AND EXPLAINED THAT HE NEEDED TO WEAR THIS. HE TOLD ME TO " GO TAKE A HIKE"
--- NOTE | 2019-04-10 23:30 | NUR ---
PULSE OX ALARM GOING OFF. I PUT HIS OXY MASK BACK ON HIM.
--- NOTE | 2019-04-10 23:55 | NUR ---
PULSE OX ALARMING, PUT PT'S OXY MASK BACK ON.
--- NOTE | 2019-04-11 00:05 | NUR ---
PT RESTING IN BED, EYES CLOSED. PT INTERMITTENTLY REMOVES OXYMASK FROM FACE, DESATS TO MID 80'S. RESOLVES WITH PLACEMENT OF OXYMASK. CPOX IN PLACE, O2 SAT AND HR WNL. NO DISTRESS NOTED. CALL LIGHT IN REACH.
--- NOTE | 2019-04-11 00:10 | NUR ---
CPOX BEEPING TRIED BLOWBY SINCE PT KEEPS TAKING OXYMASK OFF. DID NOT KEEP O2 SAT UP, PUT OXYMASK BACK IN PLACE. CALL LIGHT IS CLOSE.
--- NOTE | 2019-04-11 01:30 | NUR ---
PULSE OX ALARM GOING OFF. PUT OXY MASK BACK ON.
--- NOTE | 2019-04-11 02:00 | NUR ---
ASSESSMENT COMPLETE, NO NEW CHANGES OR CONCERNS. PT ON 6L OXYMASK, CPOX IN PLACE. PT REPEATEDLY REMOVES OXYMASK AND DESATS TO MID 80'S. PT DENIES PAIN AT THIS TIME, REPOSITONED IN BED WITH HELP FROM TAB SOTOMAYOR. WHILE MOVING PT, PT CLENCHED FISTED AND YELLED AT STAFF, "I'M GONNA THUMP YOU". ONCE PT WAS REPOSTIONED, PT RELAXAED AND AGAIN DENIED PAIN. WILL MONITOR. RIOS CATHETER DRAINING, LOW URINE OUTPUT. WILL CONTINUE TO MONITOR. NO FURTHER NEEDS, CALL LIGHT IN REACH. BED ALRM ON FOR SAFETY.
--- NOTE | 2019-04-11 02:15 | NUR ---
PULSE OX ALARMING , PUT OXY MASK BACK ON.
--- NOTE | 2019-04-11 02:23 | NUR ---
CPOX BEEPING, PT'S OXYMASK IS OFF. REPLACED MASK AND PT O2 SAT RETURNED TO NORMAL. PT IS RESTING WITH EYES CLOSED.
--- NOTE | 2019-04-11 03:37 | NUR ---
SPOKE TO DR OCAMPO REGARDING PT'S LOW URINE OUTPUT. TELEPHONE ORDERS READ BACK TO DECREASE PT'S D5LR FROM 200MLS/HR TO 125MLS/HR. PER DR OCAMPO, CALL ONLY IF 0600 URINE OUTPUT IS LESS THAN 90/MLS.
--- NOTE | 2019-04-11 04:15 | NUR ---
PULSE OX ALARMING AGAIN. PUT OXY MASK BACK ON.
--- NOTE | 2019-04-11 05:30 | NUR ---
pt repsotioned with help from theresa candelaria. notified by theresa september that pt's iv site to left arm "looks puffy". this rn in room to assess. blood return easily noted, iv lfuids infusing per md orders. iv site wnl. call light in reach, bed alarm on for safety.
--- NOTE | 2019-04-11 06:55 | NUR ---
PT IN BED, ASKED IF PT IS HAVING PAIN. PT DENIES PAIN AND STATES, "IF IT STILL HURTS TOMORROW THEN I'LL TAKE A PAIN PILL". NO FURTHER NEEDS, CALL LIGHT IN REACH.
--- NOTE | 2019-04-11 06:59 | NUR ---
PT SLEPT ON AND OFF, PAIN CONTROLLED WITH SCHEDULED AND PRN PAIN MEDICATION. VSS, PT ON CPOX. ON 6L OXYMASK, FREQUENTLY REMOVES MASK. HX DEMENTIA, FORGETFUL AND AGITATED AT TIMES. RIOS CATHETER, LOW MD RINA ALREADY AWARE. NO BM. TURN Q2H AND PRN. NO NAUSEA THIS SHIFT. PT ORDERS, NOT YET OUT OF BED. BED ALRM ON FOR SAFETY.
--- NOTE | 2019-04-11 07:15 | NUR ---
PATIENT LAYING IN BED SLEEPING, ROUSES TO VOICE. D5LR RUNNING AT 125 MLS/HR. PATIENT ON 6LNC WITH SPO2 OF 92%. REPORT RECEIVED, ORDERS ACKNOWLEDGED. CALL LIGHT WITHIN REACH.
--- NOTE | 2019-04-11 09:40 | NUR ---
PT IN ROOM WORKING WITH PATIENT
--- NOTE | 2019-04-11 10:44 | NUR ---
DR. OCAMPO NOTIFIED OF URINE OUTPUT OF 115 MLS IN FOUR HOURS, URINE IS TEA-COLORED. BP OF 122/68.
--- NOTE | 2019-04-11 11:35 | NUR ---
PATIENT SLEEPING IN BED ON 6LNC, SPO2 OF 94%. CALL LIGHT WITHIN REACH.
--- NOTE | 2019-04-11 12:30 | NUR ---
Pt. sleeping, not awakened. Chart faxed to [facility] for possible to dc there next week.
--- NOTE | 2019-04-11 13:14 | NUR ---
СВЕТЛАНА BLANCO REQUESTED I NOT DISTURB PT AT THIS TIME. HE HAS HAD A BUSY AM, AND IS RESTING AT THE MOMENT. WILL FOLLOW NEEDED
--- NOTE | 2019-04-11 13:58 | NUR ---
PATIENT RESTING IN BED. VITAL SIGNS AND I&O DONE. PATIENT REPOSITIONED. TWO PERSON ASSISTING. CALL LIGHT WITHIN REACH. NO OTHER NEEDS AT THIS TIME
--- NOTE | 2019-04-11 15:03 | NUR ---
PATIENT SITTING UP IN BED, RT IN ROOM. MD ORDERS ACKNOWLEDGED, CPOX REMOVED, WILL SPOT CHECK SPO2. MEDICATIONS GIVEN, ASSESSMENT COMPLETE. PATIENT DISORIENTED TO PERSON, PLACE, AND TIME. OXYGEN TITRATED TO 4LNC, SPO2 OF 91%. FAMILY IN ROOM, CALL LIGHT WITHIN REACH.
--- NOTE | 2019-04-11 16:15 | NUR ---
PATIENT SLEEPING IN BED WITH OXYMASK TITRATED TO 4L. SPOT CHECK SPO2 OF 90%.
--- NOTE | 2019-04-11 17:06 | NUR ---
PATIENT SLEEPING. VITAL SIGNS AND I&O DONE. CALL LIGHT WITHIN REACH. NO OTHER NEEDS AT THIS TIME
--- NOTE | 2019-04-11 18:30 | NUR ---
PATIENT SPENT MAJORITY OF DAY ON BEDREST. WORKED WITH PT, STOOD TWICE. CPOX REMOVED, TITRATED 4L OXYMASK, SPO2 OF LOW 90'S. PAIN MANAGED WITH OXYCODONE AND TYLENOL. D5LR AT 125, IV PATENT. PAINFUL WITH ROLLING, TURN Q2.
--- NOTE | 2019-04-11 19:04 | NUR ---
DR OCAMPO NOTIFIED OF LOW URINE OUTPUT. NO NEW ORDERS. WILL CONT TO MONITOR.
--- NOTE | 2019-04-11 19:35 | NUR ---
SHIFT REPORT RECEIVED FROM [facility] AT BEDSIDE. PT RESTING IN BED, EYYES CLOSED. 4L OXYMASK IN PLACE. NO DISTRESS NOTED, CALL LIGHT IN REACH. IV FLUIDS INFUSING PER MD ORDERS, IV SITE WNL. PT APPEARS COMFORTABLE, NO DISTRESS NOTED. CALL LIGHT IN REACH, BED ALARM ON FOR SAFETY.
--- NOTE | 2019-04-11 22:00 | NUR ---
ASSESSMENT COMPLETE, SCHEDULED MEDS CRUSHED AND GIVEN IN PUDDING. PT TOLERATED WELL. VSS, PT ON 4L OXYMASK. IV FLUIDS INFUSING PER MD ORDERS, SITE WNL. URINE OUPUT FOR LAST 4 HOURS 155 [address], DR OCAMPO MADE AWARE. NO NEW ORDERS. PER DR OCAMPO, NO NEED TO NOTIFY HIM OF LOW URINE OUTPUT FOR REMAINING SHIFT. RIOS CATHETER IN PLACE. WILL CONTINUE TO MONITOR. PT UNABLE TO RATE PAIN, GRIMACING NOTED WHEN REPOSITIONED IN BED. PRN OXYCODONE ADMINISTERED. NO FURTHER NEEDS, CALL LIGHT IN REACH. BED ALARM ON FOR SAFETY.
--- NOTE | 2019-04-12 00:33 | NUR ---
PT REPOSITIONED IN BED. PT AGITATED WITH NURSING STAFF, BUT QUICKLY SETTLED DOWN AND CONTINUED RESTING AFTER REPOSITIONING WAS COMPLETE. 4L OXYMASK IN PLACE. BLE ELEVATED. NO FURTHER NEEDS, CALL LIGHT IN REACH.
--- NOTE | 2019-04-12 01:51 | NUR ---
VITALS AND I&OS DONE AND CHARTED. GAVE HIM A DRINK OF WATER. BEDSIDE TABLE AND CALL LIGHT IN REACH.
--- NOTE | 2019-04-12 02:14 | NUR ---
REPOSITIONED PT IN BED.
--- NOTE | 2019-04-12 02:56 | NUR ---
PT REPOSITIONED IN BED WITH HELP FROM СВЕТЛАНА WHITLEY. PT MOANED AND CRIED DURING REPOSITIONING. PRN OXYCODONE CRUSHED AND GIVEN IN PUDDING. PT ON 4L OXYMASK, REMOVES FROM FACE PERIODICALLY. HELL PROTECTORS IN PLACE PER NURSING JUDGEMENT. RIOS CATHETER VOIDING TEA COLORED URINE, WILL CONTINUE TO MONITOR. IV FLUIDS INFUSING PER MD ORDERS, SITE WNL. NO ADDITIONAL NEEDS OR CONCERNS, CALL LIGHT IN REACH.
--- NOTE | 2019-04-12 03:30 | NUR ---
DR OCAMPO AT NURSE'S STATION. MADE AWARE OF PT'S LOW URINE OUTPUT. NO NEW ORDERS, WILL MONITOR.
--- NOTE | 2019-04-12 05:39 | NUR ---
PT SLEPT ON AND OFF THIS SHIFT. VSS, 4L OXYMASK. REPEATEDLY ATTEMPTED TO REMOVE MASK. TURN Q2H, ORDERS FOR PT. BED ALRM ON. REGULAR DIET, LOW APPETITE. MEDS CRUSED IN PUDDING. RIOS CATHTER IN PLACE, URINE TEA COLORED. LOW MD RINA ALREADY AWARE. BED ALRM ON.
--- NOTE | 2019-04-12 07:40 | NUR ---
PATIENT SLEEPING. CALL LIGHT WITHIN REACH.
--- NOTE | 2019-04-12 09:31 | NUR ---
PATIENT IN BED. VITAL SIGNS AND I&O DONE. THIS WELDING ROBOT OPERATOR TRIED TO FEED THE PATIENT BUT HE IS SLEEPY AND CAN'T SWALLOW WATER. RN NOTIFIED. CALL LIGHT WITHIN REACH. NO OTHER NEEDS AT THIS TIME
--- NOTE | 2019-04-12 10:19 | NUR ---
PT IN BED, HOB ELEVATED. PT GIVEN OXYCODONE 5MG PO AND SCHEDULED TYLENOL FOR LLE PAIN. ASSISTED PT WITH FEEDING; PT TOLERATING PO WELL. IV FLUID RATE DECREASED TO 65ML/HR PER VORB FROM DR. OCAMPO AT BEDSIDE. CLOSE TO RN STATION. PT HAS NO NEEDS AT THIS TIME.
--- NOTE | 2019-04-12 10:30 | NUR ---
JOYCE FROM DR. ARECHIGA TO INCREASE IV FLUID RATE TO 75ML/HR. RATE INCREASED AT THIS TIME.
--- NOTE | 2019-04-12 11:48 | NUR ---
DR. OCAMPO AWARE OF LOW URINE OUTPUT OF 50ML/HR.
--- NOTE | 2019-04-12 11:53 | NUR ---
DR. OCAMPO NOTIFIED REGARDING LAST URINE OUTPUT OF 50ML.
--- NOTE | 2019-04-12 13:34 | NUR ---
PATIENT SLEEPING. VITAL SIGNS AND I&O DONE. CALL LIGHT WITHIN REACH. NO OTHER NEEDS AT THIS TIME
--- NOTE | 2019-04-12 15:22 | NUR ---
ADMIN OXYCODONE 5MG PO FOR NOTABLE PAIN TO LLE. PT HAS FACIAL GRIMACING AND ATTEMPTS TO GRAB AT LLE.
--- NOTE | 2019-04-12 17:21 | NUR ---
PATIENT RESTING IN BED. VITAL SIGNS AND I&O DONE. LOW OUTPUT. RN NOTIFIED,. CALL LIGHT WITHIN REACH. NO OTHER NEEDS AT THIS TIME
--- NOTE | 2019-04-12 19:13 | NUR ---
DR. VAZQUEZ AWARE OF CONTINUED LOW URINE OUTPUT. LAST URINE OUTPUT REPORTED TO BE 50ML.
--- NOTE | 2019-04-12 20:00 | NUR ---
RECEIVED REPORT AT 1900, FOUND PT SLEEPING IN BED.
--- NOTE | 2019-04-12 22:00 | NUR ---
V/S ARE WDL, IV INFILTRATED AND A NEW ONE WAS PLACED. PT ALSO SEEMS TO ASPIRATE AND A CHEST X-RAY WAS ORDERED FOR THE AM. NO BM NOTED SO FAR. ALL LOBES ARE CLEAR BUT PT CANNOT REALLY FOLLOW COMMANDS TO TAKE DEEP BREATHS. ABD SOUNDS ARE PRESENT. PT HAS SCROTAL EDEMA AND +1 BILATERAL LOWER LEG EDEMA PRESENT, PEDIS PULSES +1.
--- NOTE | 2019-04-13 01:15 | NUR ---
PT WAS REPOSITIONED AGAIN. LOBES ARE STILL CLEAR BUT PT HAS A FREQUENT COUGH. OVERALL THE SECOND ASSESSMENT WAS UNCHANGED FROM THE FIRST. LEFT LEG CMS IS INTACT. WILL CONTINUE TO MONITOR.
--- NOTE | 2019-04-13 01:36 | NUR ---
PT APPEARS TO BE IN PAIN AT THIS TIME. SINCE I HAVE NO PRN PAIN MEDICATION TO GIVE, PT WAS REPOSITIONED. WILL CONTINUE TO MONITOR. HOB AT 30 DEGREES.
--- NOTE | 2019-04-13 01:50 | NUR ---
ASST RN TO BOOST UP/TURN PT IN BED, EMPTIED RIOS FOR 2AM I&Os, OFFERED PT WATER BUT PT REFUSED
--- NOTE | 2019-04-13 04:00 | NUR ---
PT IS SLEEPING AT THIS TIME.
--- NOTE | 2019-04-13 06:06 | NUR ---
PT HAS NEW ONSET COUGH, CHEST X-RAY ORDERED FOR THIS AM. IV SITE INFILTRATED FIRST THING AT START OF SHIFT, NEW IV WAS PLACED. PT REFUSED ANY PO LIQUIDS ALL NIGHT. PT WAS TURNED FREQUENTLY. EVEN WITH BEING MEDICATED, PT WAS IN SEVERE PAIN WHILE BEING REPOSITIONED. LEFT LEG CMS IS INTACT. ABD SOUNDS ARE PRESENT, ALL LOBES CLEAR BUT PT DOES NOT FOLLOW COMMANDS TO DEEP BREATH. PT IS NOT ABLE TO MAINTAIN O2 SATS >90% ON RA. PT HOWEVER KEEPS TAKING OFF HIS O2. +1 BILATERAL LOWER LEG EDEMA NOTED WELL SCROTAL EDEMA. NO BM SO FAR THIS SHIFT. LAST BM DATE IS UNK.
--- NOTE | 2019-04-13 06:16 | NUR ---
HELPED СВЕТЛАНА KNOX REPOSITION PT IN BED. VITALS AND I&OS DONE AND CHARTED. BEDSIDE TABLE AND CALL LIGHT WITHIN REACH.
--- NOTE | 2019-04-13 06:25 | NUR ---
URINE OUTPUT HAS REMAINED LOW ALL SHIFT. URINE IS DARKWER IN COLOR THIS MORNING.
--- NOTE | 2019-04-13 07:50 | NUR ---
PT SLEEPING IN BED AT THIS TIME, HOB ELEVATED. PT IS ON 3L OXYMASK; PT FREQUENTLY REMOVED MASK, REPOSITIONED MASK WHILE IN ROOM OBTAINING BEDSIDE REPORT. PT APPEARS TO BE COMFORTABLE, FLACC SCALE 0/10. LOWER EXT AND SCROTAL EDEMA NOTED. REPORTED BY PREVIOUS RN PT'S URINE OUTPUT REMAINS LOW. PT CLOSE TO RN STATION FOR FREQUENT MONITORTING. CRX COMPLETED THIS AM; PENDING RESULTS AT THIS TIME. PT HAS NOTABLE NONPRODUCTIVE COUGH.
--- NOTE | 2019-04-13 08:54 | NUR ---
PATIENT RESTING IN BED. VITAL SIGNS AND I&O DONE. CALL LIGHT WITHIN REACH. NO OTHER NEEDS AT THIS TIME
--- NOTE | 2019-04-13 10:33 | NUR ---
REPOSITIONED PT AT THIS TIME. ADMIN OXYCODONE 5MG PO CRUSHED IN APPLESAUCE. PT HAS NOTABLE FACIAL GRIMACING AT THIS TIME. HOB ELEVATED. CLOSE TO RN STATION FOR FREQUENT MONITORING.
--- NOTE | 2019-04-13 12:15 | NUR ---
DAUGHTER IN ROOM VISITING WITH DR. VAZQUEZ REGARDING PLAN OF CARE. CALL LIGHT WITHIN REACH. NO NEEDS AT THIS TIME.
--- NOTE | 2019-04-13 12:19 | NUR ---
JOYCE FROM DR. VAZQUEZ THAT THERE IS NO NEEDS TO UPDATE HIM ON LOW URINE OUTPUT MOVING FORWARD FOR THIS SHIFT.
--- NOTE | 2019-04-13 14:06 | NUR ---
PATIENT RESTING IN BED. VITAL SIGNS AND I&O DONE. HIGH DYASTOLIC BLOOD PRESSURE. RN NOTIFIED. CALL LIGHT WITHIN REACH. NO OTHER NEEDS AT THIS TIME
--- NOTE | 2019-04-13 16:25 | NUR ---
PT SLEEPING IN BED, HOB ELEVATED. PT APPEARS COMFORTABLE, FLACC SCALE 0/10. CLOSE TO RN STATION FOR FREQUENT MONITORING.
--- NOTE | 2019-04-13 17:25 | NUR ---
REPOSITIONED PT. PT NOT INTERESTED IN EATING MUCH FOR DINNER. ENCOURAGED PT TO DRINK WATER; PT PUSHES WATER CUP AWAY.
--- NOTE | 2019-04-13 17:54 | NUR ---
PATIENT SLEEPING. VITAL SIGNS DONE BY RN. I&O DONE. CALL LIGHT WITHIN REACH. NO OTHER NEEDS AT THIS TIME
--- NOTE | 2019-04-13 20:00 | NUR ---
RECEIVED REPORT AT 1900, FOUND PT IN BED SLEEPING.
--- NOTE | 2019-04-13 21:57 | NUR ---
VITALS AND I&OS DONE AND CHARTED. BEDSIDE TABLE AND CALL LIGHT IN REACH.
--- NOTE | 2019-04-13 22:00 | NUR ---
PRN PAIN MEDICATION WAS GIVEN, ALL LOBES ARE CLEAR, ABD SOUNDS ARE PRESENT BUT ABD IS FIRM TO TOUCH. NO NEW CONCERNS NOTED AT THIS TIME.
--- NOTE | 2019-04-14 02:00 | NUR ---
MD VAZQUEZ WAS CALLED AT ABOUT 0135 BECAUSE PT WAS IN A LOT OF PAIN. EARLIER PT HAD TO BE TURNED AND EVEN THOUGH HE WAS PRE MEDICATED, HIS PAIN WAS OUT OF CONTROL. PT WAS MOANING, SCREAMING AND WE WERE UNABLE TO CONSOLE HIM. A PRN ORDER FOR 1-3MG IV MORPHINE WAS RECEIVED AND THEN GIVEN. PT HAS SETTLED SINCE BUT STILL AT TIMES IS MOANINGS. CMS ON RIGHT LEG IS INTACT, ALL LOBES ARE CLEAR, +1 TO +2 EDEMA IS PRESENT IN BILATERAL LOWER LEGS. PENILE AND SCROTAL EDEMA HAVE WORSEND SOME. WILL CONTINUE TO MONITOR.
--- NOTE | 2019-04-14 05:30 | NUR ---
THE IV MORPHINE ORDER HELPED PT A LOT. ALL LOBES ARE CLEAR, PT IS STILL COUGHING, PT AGAIN HAS REFUSED ALL PO INTAKE BUT PUDDING. URINE OUTPUT IS INADEQUATE, PERIPHERAL LEG AND SCROTAL EDEMA HAS INCREASED SINCE LAST NIGHT. PT STILL HAS NOT HAD A BM SO FAR. ABD SOUNDS ARE PRESENT THOUGH.
--- NOTE | 2019-04-14 06:10 | NUR ---
VITALS AND I&OS DONE AND CHARTED. FRESH WATER GIVEN. GARBAGES EMPTIED AND ROOM CLEANED UP. BEDSIDE TABLE AND CALL LIGHT IN REACH. FRESH ICE PACK GIVEN FOR LEFT HIP.
--- NOTE | 2019-04-14 07:07 | NUR ---
RECEIVED REPORT FROM СВЕТЛАНА KONX. pt RESTING IN BED, 1L O2 VIA BLOWBY. WHITEBOARD UPDATED. CURTAIN OPEN TO NURSES STATION.
--- NOTE | 2019-04-14 09:58 | NUR ---
pt LAYING IN BED MOANING OCCASSIONALLY. ASSESSMENT DONE. MEDICATIONS GIVEN WITH PUDDING, pt TOLERATED A FEW EXTRA BITES, REFUSED WATER. FENTANYL PATCH PLACED ON LEFT SHOULDER. JUNITO MCFADDEN IN, RIOS CARE DONE. BED BATH DONE, pt SANG PLEASANTLY DURING BED BATH. NO COHERENT WORDS. TURNED pt. VITALS AND I&O RECORDED. ROOM TIDIED. CURTAIN OPEN TO NURSES STATION.
--- NOTE | 2019-04-14 11:30 | NUR ---
pt RESTING IN BED, MOANING OCCASSIONALLY. ARMINDA, DAUGHTER OF pt, AT BEDSIDE. QUESTIONS ANSWERED. HO, CASE MANAGEMENT, NOTIFIED THAT ARMINDA WISHED TO DISCUSS CARE.
--- NOTE | 2019-04-14 12:00 | NUR ---
In to speak with daughter Lisseth. She has multiple questions about end of life care. At her request, I called [facility] and they are unable to accept him back as they do not have the staff for 2 person assist. Faxed updated papers to [facility]. They may take him, but it would be for 5-7 days only on comfort care. Called [facility] and requested they complete an evaluation today, as family would pay out of pocket. I have not received a response at this time.
--- NOTE | 2019-04-14 12:56 | NUR ---
ROUNDED ON pt. RESTING IN BED, ARMINDA AT BEDSIDE. ALL QUESTIONS ANSWERED. pt REPOSITIONED. ATTEMPTED TO FEED SOME PUDDING, pt REFUSED. DAUGHTER AT BEDSIDE. NO FURTHER REQUESTS AT THIS TIME. CALL LIGHT WITHIN REACH.
--- NOTE | 2019-04-14 14:30 | NUR ---
[facility] MANAG[facility] TEACHER IN TO EVALUATE. pt MOANING. SCHEDULED MEDS GIVEN (SEE MAR). pt WAS SLOW TO SWALLOW PUDDING. CASE MANAGEMENT INTO ANSWER QUESTIONS. CURTAIN OPEN TO NURSES STATION. pt REPOSITIONED.
--- NOTE | 2019-04-14 15:30 | NUR ---
ASSESSMENT DONE. pt RESTING IN BED. ORAL CARE DONE. NO BM AT THIS TIME. REPOSITIONED. CURTAIN OPEN TO NURSES STATION.
--- NOTE | 2019-04-14 16:15 | NUR ---
[facility] in to evaluate [facility] for admission for comfort care. They will accept the pt. tomorrow. They will complete a POC and call us tomorrow am.
--- NOTE | 2019-04-14 16:20 | NUR ---
MEDICATION GIVEN CRUSHED WITH PUDDING (SEE MAR). pt WAS SLOW TO SWALLOW BUT DID WITH COACHING. AFTER A MINUTE pt OPENED HIS EYES AND SPOKE PLEASANTLY AND INCOHERENTLY, DID SAY "NO" TO PAIN. CURTAIN OPEN TO THE NURSES STATION.
--- NOTE | 2019-04-14 17:30 | NUR ---
ANSWERED PHONE CALL FROM AARON MEJIA FOR pt. QUESTIONS ANSWERED. UPDATED ON pt's CURRENT CONDITION. REASSURED AARON THAT OUR DISCUSSION WOULD BE PASSED ON TO CASE MANAGEMENT AND TO THE CHARGE NURSE. AARON VERBALIZED UNDERSTANDING AND PLANS TO ARRIVE 04/15/19 AROUND 1400. CASE MANAGEMENT AND CHARGE NURSE UPDATED ON CONVERSATION. pt REPOSITIONED. REFUSED DINNER AT THIS TIME. CURTAIN OPEN TO THE NURSES STATION.
--- NOTE | 2019-04-14 17:56 | NUR ---
pt DID NOT HAVE MUCH ORAL INTAKE. COHERENT AT TIMES. DISORIENTED TO ALL. LOW URINE OUTPUT IMPROVED WITH LASIX X1. NO BM. RIOS. IV SL. PAIN MED PATCH TO LEFT SHOULDER. DAUGHTER (POA) AND SON WILL BE HERE TOMORROW APPROX 1400. [facility] EVALUATED FOR COMFORT CARE ADMISSION. DOES NOT USE CALL LIGHT. WILL TAKE PO MEDS WITH PUDDING AND COACHING.
--- NOTE | 2019-04-14 20:00 | NUR ---
RECEIVED REPORT AT 1900, FOUND PT IN BED SLEEPING. NO NEW CONCERNS NOTED AT THAT TIME.
--- NOTE | 2019-04-14 22:00 | NUR ---
PT OVERALL SEEMS IN LESS PAIN SO FAR. ALL LOBES ARE CLEAR, ABD SOUNDS ARE HYPOACTIVE AT THIS TIME, PT STILL DID NOT HAVE A BM SO FAR. BILATERAL LOWER LEG EDEMA STILL PRESENT AND UNCHANGED, PENILE AND SCROTAL EDEMA HAVE INCREASED SINCE LAST NIGHT. URINE OUTPUT SO FAR IS ADEQUATE. PT DID TAKE 1 SIP OF H2O SO FAR. PT DID TAKE PO MEDS WITH PUDDING. V/S ARE WDL SO FAR.
--- NOTE | 2019-04-15 00:09 | NUR ---
PT WAS JUST CLEANED UP AND TURNED. PT HAS HAD A SMALL FORMED BM. PRN IV MORPHINE WAS GIVEN. PT BEFORE TURNING WAS SUDDENLY VERY AWAKE AND TALKING. WHILE WHAT HE WAS SAYING WAS VERY INAPROPTIATE, PT SEEMED THE MOST ALERT SINCE I HAVE TAKEN CARE OF HIM.
--- NOTE | 2019-04-15 00:11 | NUR ---
4 PA CLEANED AND CHANGED PATIENT'S ATTENDS AND REPOSITIONED.
--- NOTE | 2019-04-15 02:15 | NUR ---
PT NOW IS SLEEPING, PAIN SEEMS WELL CONTROLLED AT THIS TIME. LOBES ARE CLEAR, ABD SOUNDS ARE PRESENT, SCROTAL AND PERIPHERAL EDEMA IS UNCHANGED. NO NEW CONCERNS NOTED.
--- NOTE | 2019-04-15 06:18 | NUR ---
PT ONLY HAD 1 SIP OF WATER THIS SHIFT, PT DID REQUIRE SOME PRN PAIN MEDICATION WHEN AND AFTER HE WAS REPOSITIONED. PT HAD A BRIEF PERIOD OF ALERTNESS FAR HAVING HIS EYES OPEN AND TALKING. URINE OUTPUT IS INADEQUATE AND URINE COLOR IS GETTING DARKER STILL. SCROTAL EDEMA IS INCREASING, PERIPHERAL EDEMA IS UNCHANGED.
--- NOTE | 2019-04-15 07:43 | NUR ---
PT IN BED, HOB ELEVEATED. PT HAS INTERMITTENT MOANING NOTED. MORPHINE PO RECENTLY ADMINISTERED BY PREVIOUS RN. PT IS ON 2L OXYGEN VIA OXYMASK. CLOSE TO RN STATION. PERSONAL SUPPLIES AND CALL LIGHT WITHIN REACH. NO NEEDS AT THIS TIME.
--- NOTE | 2019-04-15 08:08 | NUR ---
OXYGEN SATURATION SPOT CHECK OF 92% ON 2L VIA OXYMASK. ADMIN OXYCODONE 5MG PO FOR S/S OF PAIN. FLACC SCALE OF 5/10. PT CLOSE TO RN STATION FOR FREQUENT MONITORING. CALL LIGHT WITHIN REACH. NO NEEDS AT THIS TIME.
--- NOTE | 2019-04-15 09:00 | NUR ---
NOtified by daughter Lisseth, siblings are arriving today and they are not on board with comfort care at [facility]. They will arrive this afternoon. Updated Dr. Gu and he has spoken with Lisseth's sister and she had stated the same to him.
--- NOTE | 2019-04-15 09:31 | NUR ---
REPOSITONED PT WITH HELP. DID ORAL CARE WITH MOUTH SWABS.
--- NOTE | 2019-04-15 11:07 | NUR ---
ADMIN MORPHINE 10MG PO FOR FLACC 5/10. REPOSTITIONED 2PA AT THIS TIME.
--- NOTE | 2019-04-15 11:30 | NUR ---
DR. VAZQUEZ MADE AWARE OF MOST RECENT URINE OUTPUT OF 175ML. NO NEW ORDERS AT THIS TIME.
--- NOTE | 2019-04-15 13:37 | NUR ---
PT SLEEPING IN BED. PT WONT WAKE TO EAT. MOUTH SWABS USED TO CLEANSE MOUTH. DAUGHTER IN ROOM WITH PT.
--- NOTE | 2019-04-15 14:14 | NUR ---
PT IS IN BED, O2 MASK AROUND HIS CHIN/MOUTH. DAUGHTER ARMINDA AT BS. SHE IS VERY PLEASANT AND SEEMED PLEASED I STOPPED BY. PT IS ON COMFORT CARE AND WILL BE TRANSITIONING BACK TO [facility] HOSP[facility]. ARMINDA SEEMS TO BE AT [facility] WITH AND UNDERSTANDING PTS' CONDITION. HER SIBLINGS FROM [facility] WILL BE HERE THIS PM. SHE REQUESTED I CONTACT PTS' FREIGHT RATE SPECIALIST, WHICH I DID. PT RESPONDED TO MY VOICE, BUT NOTHING ONE COULD UNDERSTAND. EXTENDED A BLESSING, WILL FOLLOW NEEDED
--- NOTE | 2019-04-15 15:00 | NUR ---
Call from [facility], they are unable to accept the pt due to the late hour of the day. They spoke to daughter and she is in route and will be approx 1 hour. Let them know I will update Dr Gu and ask the family to come and visit [facility] today to view paperwork if they decide to take him there for DC.
--- NOTE | 2019-04-15 16:00 | NUR ---
DAUGHTER AINSLEY AND FAMILY AT BEDSIDE DISCUSSING PLAN OF CARE WITH THIS RN, DR. VAZQUEZ AND HO WITH DISCHARGE PLANNING. QUESTIONS ANSWERED. FAMILY STATES THEY WILL NOTIFY THIS RN IF THEY WANT ANY NARCOTICS ADMININSTERED FOR THE REMAINDER OF MY SHIFT. PT CLOSE TO RN STATION. WILL CONITNUE TO MONITOR PT.
--- NOTE | 2019-04-15 16:00 | NUR ---
Called to room by Dr. Gu as he states children have arrived and sisters are fighting in the room. At my arrival, Lisseth has left and daughter and son are in the room. Dr Gu explained why he feels comfort care is the best practice and family are thinking they would like to decrease or stop pain medication to see if pt will awaken. Family strongly cautioned against this as Rn is in the room and states with pain medications pt cries when turned and moved. Family updated pt does not qualify for skilled care as he cannot follow requests or complete PT or OT. He could go the a SNF for 5-7 days of comfort care, but would need to move to another facility at that times if he does not decline. Updated he has been accepted by [facility], but family will need to go discuss rates. Daughter is concerned pt will run out of money. Discussed medicaid and how to apply if he becomes destitute. Family will go speak with [facility]. Notified I will be available until 5:30 pm if they have questions.
--- NOTE | 2019-04-15 17:07 | NUR ---
FAMILY BACK IN ROOM.
--- NOTE | 2019-04-15 17:28 | NUR ---
PT FAMILY IN ROOM.
--- NOTE | 2019-04-15 21:00 | NUR ---
RECEIVED REPORT AT 1900, FOUND PT IN BED AWAKE. PT WAS ALERT BUT CONFUSED. NO NEW CONCERNS NOTED AT THAT TIME AT THIS TIME ALL LOBES ARE CLEAR WITH SOME RATTLING IN THE UPPER AIRWAY. PERIPHERAL EDEMA +2, SCROTAL EDMEA STILL PRESENT, ABD SOUNDS ARE PRESENT. PT DID REFUSE SOME OF HIS EVENING MEDS WITH HIS PUDDING. NO NEW CONCERNS NOTED AT THIS TIME.
--- NOTE | 2019-04-15 23:18 | NUR ---
PATIENT IS RESTING IN BED WITH EYES CLSOED, RR 18. PATIENT APPEARS COMFORTBALE. PATIENTS CALL LIGHT IS WITHIN REACH. BED ALARM ON FOR SAFETY.
--- NOTE | 2019-04-16 02:40 | NUR ---
PT STATES THAT HE IS "HURTING" AT THIS TIME. PRN IV MORPHINE 2MG TO BE GIVEN. ALL LOBES ARE CLEAR, PT IS AWAKE AND TALKING TO SELF. ABD SOUNDS ARE PRESENT, PERIPHERAL AND SCROTAL EDEMA IS UNCHANGED. NO NEW ISSUES NOTED SO FAR.
--- NOTE | 2019-04-16 05:47 | NUR ---
AT START OF SHIFT PT WAS AWAKE AND ALERT. PT WAS VERBAL BUT CONFUSED. ALL LOBES ARE CLEAR, ABD SOUNDS ARE PRESENT. PERIPHERAL EDEMA AND SCROTAL EDEMA IS UNCHANGED. PT DID REQUIRE IV MORPHINE 2MG X1 FOR PAIN THIS SHIFT. PT DID STATE THAT HE WAS IN PAIN.
--- NOTE | 2019-04-16 09:04 | NUR ---
RT in room doing a home DC O2 need
--- NOTE | 2019-04-16 09:25 | NUR ---
O2 3L NC IN PLACE, LUNGS DIM AT BASES, MOIST NON PRODUCTIVE COUGH PRESENT. SWALLOWS SPUTUM. COOP WITH VITALS, WAS ABLE TO EAT 100% OF BREAKFAST, FEEDER, TOOK MEDS CRUCHED IN PUDING WELL, HOB ELEVATED, TOLERATED MILK AND WATER WELL, ASPIRATION AND HIGH FALL RISK PRECAUTIONS IN PLACE, ALL PROCEDURES EXPLAINED PRIOR TO. WAS COOP. SAFERY REASURED. COMPLIANT. RECEIVED TYLENOL 1000MG PO SCHEDULED PER 5/10 FLACC SCALE, PAINFUL WHEN REPOSITIONED. BED ALARM ON, CALL LIGHT AT BEDSIDE
--- NOTE | 2019-04-16 09:33 | NUR ---
f/c dc'd as per orders, procedure explained, tolerated well, 9cc water balloon defleted
[2019-04-16] MEDS ORDERED: MORPHINE S100 MG/5 M PO (09:46)
[2019-04-16] MEDS ORDERED: SENNA LAX8.6 MG PO (09:47)
[2019-04-16] MEDS ORDERED: TYLENOL EXTRA500 MG PO (09:47)
[2019-04-16] MEDS ORDERED: FENTANYL1 EAC4 TD (09:47)
[2019-04-16] MEDS ORDERED: HEALTHYLAX17 GM PO (09:48)
[2019-04-16] MEDS ORDERED: DULCOLAX10 MG PR (09:49)
--- NOTE | 2019-04-16 10:30 | NUR ---
Pt desated during the night and 02 replaced. 02 qualify completed and pt qualifies for 02. Calling family to confirm which DME comp. they prefer. Unable to contact. Messages left.
--- NOTE | 2019-04-16 10:35 | NUR ---
Spoke with Summer at [facility], they are ready for pt to arrive whenever we can discharge. Called and spoke with family and they would like [facility] for oxygen. Daughter would address changed in medical record to her address for all communication to be sent to her. Orders, o2 qualifier, H&P, Prog notes, DC note, ED summary sent to [facility]. Received conf. at 1037.
--- NOTE | 2019-04-16 11:30 | NUR ---
NOtified by family they would like [facility]. Chart faxed and receipt received.
--- NOTE | 2019-04-16 11:47 | NUR ---
pt seems to be pocketing food, mouth care done, and semichewed food removed from back of l sided mouth, pt is able to cough up and spit some of that food, hob elevated, aspiration precautions in place. Pt very cooperative and comfortable at this time. Turned, bed bath given by sales donor recruitment representative. No void yet, f/c was dc'd at 0930. had smear of bm. Bruised L back, arm, and penile/scrotum area w/o changes. scrotum/penis edematous, elevated with towels, scant amount of greenigh/amin colored discharge noted, unknown from where. pinkish discharge dfrom penis noted, probably from f/c removal. Heel protectors in place. Pt helped with turning. Visiting with clergy at this time, very appropriate talk and was able to recognize his preacher. call light at bedside
--- NOTE | 2019-04-16 12:30 | NUR ---
Called to check about delivery of 02 and notified he was auto disqualified as dc summary did not show 02 use. Asked they confirm with their admin as we do not feel this is correct. Received call at 1300 from [facility], addended notes sent showing pt desated last night and now requires 02. Requested they notify us when o2 can be delivered and we will transfer pt to [facility] per nonemergent transport. Pt is unable to walk or sit up in bed and will need stretch transfer.
--- NOTE | 2019-04-16 13:14 | NUR ---
Resting, eyes closed, hob elevated, no coughing or sob noted, O2 3l NC in place,
--- NOTE | 2019-04-16 13:47 | NUR ---
Repositoned in bed, O2 was off, placed back on sats 76% on room air. back to 91% on 3L NC. procedure explained, tolerated well. Waiting on transport to be DC to [facility]. Alert to self only
--- NOTE | 2019-04-16 14:17 | NUR ---
NO FAMILY IN RM AT THIS TIME. PT SCHEDULED TO RETURN TO [facility] THIS PM. RN TAB IN TO CARE FOR PT-HE IS UNABLE TO CARRY ON A CONVERSATION, EXTENDED A BLESSING AND WILL FOLLOW NEEDED
--- NOTE | 2019-04-16 14:21 | NUR ---
CALL TO [facility] FOR NON EMERGENT TRANSPORT AFTER SPEAKING WITH WAITER WHO STATES, [facility] IS READY FOR PT TO COME, AND WILL OBTAIN O2 THERE.
--- NOTE | 2019-04-16 14:35 | NUR ---
Notified by [facility] 02 will be delivered in 1 hours. Nursing staff notifed nonemergent transport. Packet ready at nurses station with Rx's.
--- NOTE | 2019-04-16 15:05 | NUR ---
1440- [facility] EMS CREW HERE TO TRANSPORT PT TO [facility]- 1441 - IV SL DC'D L AC, TIP INTACT, PROCEDURE EXPLAINED, NOT VERY COOPERATIVE. 2X2 IN PLACE. O2 3L NC IN PLACE. FAMILY IN ROOM. 1445 - TELEPHONE REPORT GIVEN TO SUMMER AT [facility], 1447 - PT DC TO [facility] VIA EMS STRETCHER ACOMPANIED BY 2 EMS PERSONNEL, BELONGINGS AND DC INSTRUTIONS WITH FAMILY AND COPY TO EMS FOR [facility]
== END 2019-04-16 14:50 | DRG 535 ==
LOC: ED 20:51 → MS 23:48 → CCU 23:48 → MS 04-10 01:20
PROVIDERS: ADMIT Internal Medicine
DX: S32.82XA Multiple fractures of pelvis without disruption of pelvic ring, initial encounter for closed fracture (principal); G92 Toxic encephalopathy; G30.9 Alzheimer's disease, unspecified; F02.80 Dementia in other diseases classified elsewhere, unspecified severity, without behavioral disturbance, psychotic disturbance, mood disturbance, and anxiety; I48.0 Paroxysmal atrial fibrillation; R13.12 Dysphagia, oropharyngeal phase; N40.0 Benign prostatic hyperplasia without lower urinary tract symptoms; I10 Essential (primary) hypertension; T40.2X5A Adverse effect of other opioids, initial encounter; R60.1 Generalized edema; R41.0 Disorientation, unspecified; W18.30XA Fall on same level, unspecified, initial encounter; Y92.129 Unspecified place in nursing home as the place of occurrence of the external cause; Y92.239 Unspecified place in hospital as the place of occurrence of the external cause; Z66 Do not resuscitate; Z88.5 Allergy status to narcotic agent; Z88.8 Allergy status to other drugs, medicaments and biological substances; Z79.01 Long term (current) use of anticoagulants; Z79.899 Other long term (current) drug therapy
CPT/HCPCS: 36415; 36600; 70450; 71045; 72192; 73030; 73502; 73560; 80048; 80053; 81001; 82040; 82140; 82803; 83880; 85025; 85610; 94760; 94761; 94762; 96374; 96375; 96376; 97110; 97163; 97530; 99285-25; J1170; J1940; J2270; J2405; J7030; J7120; J7121

== ENCOUNTER 2019-06-23 09:39 | Emergency (ER) | payer MEDICARE, OTHER ==
[~2019-06-23] VITALS: Ht 175.3 cm; Wt 103.0 kg
[~2019-06-23 09:39] MED LIST changes: +ASPERCREME 1035.4 GM TOP; +DULCOLAX10 MG PR; +FENTANYL1 EAC4 TD; +HEALTHYLAX17 GM PO; +MORPHINE S100 MG/5 M PO; +NITROSTAT0.4 MG SL; +SENNA LAX8.6 MG PO; +TYLENOL EXTRA500 MG PO
--- OUTSIDE RECORDS SUMMARY | 2019-06-23 09:42 | XMS ---
PreManage Notification: ELAINE DONATO Security Director Ehs Events No recent Security Events currently on file CRITERIA MET - [facility] CARE PROVIDERS Sotero Riley MD Primary Care Current PHONE: Unknown ordelroy Case or Billing Control Clerk Current PHONE: Unknown James RILEY Current PHONE: Unknown Mesha has no Care Guidelines for this patient. E.D. VISIT COUNT (12 MO.) 3 [facility] TOTAL 3 NOTE: Visits indicate total known visits. 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 - Unspecified atrial fibrillation - Allergy status to narcotic agent status - Gastro-esophageal reflux disease without esophagitis - Hyperlipidemia, unspecified - Hypotension, unspecified - Weakness - Oth allergy status, oth than to drugs and biolg substances INPATIENT VISIT TRACKING (12 MO.) 04/09/2019 23:48 [facility] [place] TYPE: Medical Surgical COMPLAINT: - PELVIC FRACTURE DIAGNOSES: - Allergy status to oth drug/meds/biol subst status - Toxic encephalopathy - halfway (current) use of anticoagulants - Unsp place in longterm as place - Dysphagia, oropharyngeal phase - Multiple fx of pelvis w/o disrupt of pelvic ring, init - Paroxysmal atrial fibrillation - Other custodial (current) drug therapy - Fall on same level, unspecified, initial encounter - Unsp place in hospital as place - Alzheimer's disease, unspecified - 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
== END 2019-06-23 12:48 | disposition home or self-care (01) ==
LOC: ED 09:39
DX: J96.10 Chronic respiratory failure, unspecified whether with hypoxia or hypercapnia (principal); I48.91 Unspecified atrial fibrillation; K21.9 Gastro-esophageal reflux disease without esophagitis; E78.5 Hyperlipidemia, unspecified; Z87.891 Personal history of nicotine dependence; Z88.8 Allergy status to other drugs, medicaments and biological substances; Z88.5 Allergy status to narcotic agent; Z91.048 Other nonmedicinal substance allergy status; Z79.899 Other long term (current) drug therapy; Z79.01 Long term (current) use of anticoagulants
CPT/HCPCS: 99285-25

== ENCOUNTER 2020-10-14 06:35 | Inpatient (IN) | payer MEDICARE, OTHER ==
[~2020-10-14] VITALS: Ht 175.3 cm; Wt 91.9 kg
--- OUTSIDE RECORDS SUMMARY | 2020-10-14 06:42 | XMS ---
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 Care History Medical/Surgical 06/24/2019 [facility] Patient has follow up with DR. Blanca on 07/03/2019 06/24/2019 [facility] - Patient is currently established with [facility]. If patient is seen in the ED during business hours. Please contact CHWs at [facility]. Care Recommendation: If this patient has had 5 or more Emergency Department visits in the last 12 months.\T\nbsp; Patient will require education on the scope and purpose of the ED as an acute care provider not a Primary Care Provider and should not be utilized for chronic conditions.\T\nbsp; These are guidelines and the provider should exercise clinical judgment when providing care. E.D. VISIT COUNT (12 MO.) 1 [facility] TOTAL 1 NOTE: Visits indicate total known visits. ED/UCC VISIT TRACKING (12 MO.) 10/14/2020 06:36 [facility] [place] TYPE: Emergency COMPLAINT: - SOB INPATIENT VISIT TRACKING (12 MO.) No inpatient visits to display in this time frame [email or web address]
[2020-10-14] MEDS ORDERED: ARICEPT5 MG PO (07:11)
[2020-10-14] MEDS ORDERED: HYDROCHLOROTHIA25 MG PO (07:11)
--- NOTE | 2020-10-14 12:31 | NUR ---
PATIENT ARRIVED VIA STRETCH WITH ED NURSE. TRANSFERED TO BED WITH 3 RN ASSIST. PATIENT NOTED TO BE VERY WARM TO THE TOUCH AT THAT TIME. PATIENT NOT ABLE TO FOLLOW COMANDS TO DO ORAL TEMP. AXILLARY DONE AND TEMP NOTED TO BE 102. PATIENT INCOMPREHENSIBLE AT THIS TIME. PATIENT MUMBLING. UNABLE TO GET HX FROM PATIENT. ALL INFORMATION OBTAINED FROM PRIOR STAY VISITS AND MD PIMENTEL REPORT. PATIENT ARRIVED ON 10L NON-REBREATHER WITH SPO2 MID 90'S. RR-22. CALLED [facility] FOR PATIENTS NORMAL STATUS. PER STAFF MEMBER PANCHO. PATIENT IS BASELINE DEMENTIA AND NORMALLY JOKING WITH STAFF. PATIENT CAN NORMALLY EAT WELL WITH NO SWALLOW ISSUES, PATIENT USES A WALKER BASELINE WITH STAND-BY ASSIST. WILL CONTINUE TO CLOSELY MONITOR.
--- NOTE | 2020-10-14 13:00 | NUR ---
CALLED MD LOPEZ TO UPDATE THAT PATIENT SPIKED A FEVER AND ON ADMIT WAS NOTED TO BE 102 AXILLARY. GAVE PRN TYLENOL. REPAEAT LACTIC ORDERED D/T LACTIC BEING ELEVATED IN THE ED AND NEVER RE-EVALUATED. WILL SEND A UA WELL. PATIENT REMAINS CONFUSED AND DROWSY AT THIS TIME. WILL CONTINUE TO CLOSELY MONITOR.
[2020-10-14] MEDS ORDERED: SENNA-S 8.6-501 EACH PO (13:13)
[2020-10-14] MEDS ORDERED: ARTHRICREAM85 GM TOP (13:20)
[2020-10-14] MEDS ORDERED: TYLENOL EXTRA500 MG PO (13:22)
--- NOTE | 2020-10-14 13:23 | NUR ---
MED REC COMPLETE
--- NOTE | 2020-10-14 13:58 | EKG ---
[facility] [address] [place] [address] Signed Undetermined rhythm Right superior axis deviation Pulmonary disease pattern Incomplete right bundle branch block Possible Right ventricular hypertrophy ST \T\ T wave abnormality, consider anterolateral ischemia Abnormal ECG Confirmed by JOE LOPEZ MD ([id number]) on 10/14/2020 1:58:30 PM Electronically Signed By: JOE LOPEZ MD 10/14/20 1358 PATIENT NAME: KINGAELAINE WINNIE Electrocardiogram DATE OF : 32 PHYSICIAN: JOE LOPEZ MD REPORT #: [id number] REPORT IS CONFIDENTIAL AND NOT TO BE RELEASED WITHOUT AUTHORIZATION
--- NOTE | 2020-10-14 14:34 | NUR ---
IT TO SEE PT. CLAMPED PT CATHETER TO GET A SAMPLE FOR LAB. DRAINED URIN OUT OF CATHETER. PT DAUGHTER IN THE ROOM AND ABOUT TO LEAVE. EYES ARE CLOSED AND PT DOES NOT HEAR WELL. OXYGEN PROBE ON EAR KEEPS FALLING OFF AND PT KEEPS TRYING TO TAKE FACE MASK OFF. PT IS IN a FIB. WILL CONTINUE TO MONITOR CLOSELY FOR CHANGES. CALL LIGHT WITHIN REACH. PT RIGHT DISORIENTED AND RIGHT IN FRONT OF NURSES STATION SO CAN ALSO MONITOR VISUALLY FOR ANY CHANGES. NO CONCERNS AT THIS TIME.
--- NOTE | 2020-10-14 15:22 | NUR ---
INTO REASSESS PT OXYGEN PROBE. PT WAS TRYING TO TAKE CLOTHES OFF AND WAS CONFUSED. PT STATES "HE DOES NOT KNOW HOW TO PUT CLOTHES ON" REORIENTED THE PT TO LOCATION. OXYGEN LEVELS IN MID 90'S WHEN PT IS NOT REMOVING PT OXYGEN MASK. PT REGISTERING IN A FIB WITH HEART RATE IN THE MID 80'S. NO CONCERNS AT THIS TIME. WILL CONTINUE TO MONITOR CLOSELY. CURTAINS OPEN TO WATCH PT VISUALLY.
--- NOTE | 2020-10-14 16:17 | NUR ---
ASSESSMENT COMPLETE. PT CONTINUES TO BE DISORIENTED TO PLACE AND EVENT. PT TRIES TO GET OUT OF BED AND REACHES FOR FACE MASK. EVERYTIME PT TAKES OXYGEN MASK OF HE DESATS TO LOW 80'S. WHEN PT RELAXWD 02 RUNS IN THE MID 90'S AND RESPIRATIONS AT 18. BLOOD PRESSURES 110'S/ 70'S. PT CALLS FOR "MARLEY" FREQUENTLY WHICH IS HIS THAT PASSED ALMOST TWO YEARS AGO. READJUSTED PT IN BED. NURSE STUDENT IN THE ROOM SITING WITH PT. LUNG SOUNDS COARSE IN THE UPPER LOBES AND FINE CRACKES AND DIMINISHED IN THE LOWER LOBES. HEART IS IN A FIB. RIOS CATHERTER IN PLACE. SN PLACED HEARING AIDS IN PT EARS AND COMMUNICATES MORE. CALL LIGHT WITHIN REACH. PT RESTING IN BED HEAD ELEVATED AT 40 DEGREES.
--- NOTE | 2020-10-14 17:30 | NUR ---
PATIENTS TEMP TRENDING BACK UP. MD OCAMPO HERE IN THE UNIT. SEE NEW ORDERS FOR MEDICATIONS AND BLOOD CULTURES. PATIENT IS MORE ALERT THIS EVENIGN AND FOLLOWING COMMANDS. NO OTHER NEEDS AT THIS TIME. WILL CONTINUE TO CLOSELY MONITOR.
--- NOTE | 2020-10-14 17:31 | NUR ---
ASSISTED LAB WITH DRAWING BLOOD CULTURES. PT MORE ORIENTED AND WAS ABLE TO SPELL HIS LAAST NAME FOR THE BIN PILER AND WHEN ASKED THE PT KNEW THAT HE WAS IN THE HOSPITAL. GAVE PT AN ENSURE MILKSHAKE THAT HE TOLERATED WELL. ONCE AND A WHILE HE HAD TO BE REMINDED TO SWALLOW. EMMPTIED CATHETER. REFILLED ICE WATER. REMINDEDE PT TO PUT HEAD DOWN WHEN HE SWALLOWS. T SITTING UP IN BED AT 45 DEGREES. NO CONCERNS AT THIS TIME. BED RAILS IN PLACE AND BED ALARM ON. CALL LIGHT WITHIN IN REACH. WILL CONTINUE TO MONITOR CLOSELY.
--- NOTE | 2020-10-14 18:10 | NUR ---
MARIA DEL CARMEN STUDENT NURSE IS TAKING CARE OF THIS PATIENT WITH THIS RN. PATIENT RESTING IN BED AND FOLLOWING COMMANDS BETTER THIS EVENING. WILL CONTINUE TO CLOSELY MONITOR.
--- NOTE | 2020-10-14 18:53 | NUR ---
PT RIOS DC'D WITHOUT COMPLICATIONS. PT READJUST IN BED HEAD OF BED ELEVATED. PT EATING JELLO WITHOUT REMINDERS TO SWALLOW. PT IS ON ADVANCING DIET TOLERATED AND ASPIRATION PROTOCOL. PT HAS CLEAR LIQUIDS AT HIS BEDSIDE. HOME REPORTS INCONTINENCE AND RED BOTTOM. CALL LIGHT WITHIN REACH, CURTAIN OPEN AND VISUAL MONITORING. NO OTHER CONCERNS AT THIS TIME.
--- NOTE | 2020-10-14 20:44 | NUR ---
SHIFT REPORT RECEIVED FROM SN MARIA DEL CARMEN AND СВЕТЛАНА BECKETT. PT IS LETHARGIC AND ONLY ORIENTED TO SELF. BED ALARM ON FOR SAFETY. PT REPORTS HEADACHE, PRN TYLENOL GIVEN CRUSHED IN APPLESAUCE, PT TOLERATED WELL WITHOUT COUGHING. HR IRREGULAR, RATE IN 70'S. LUNGS CLEAR AT THIS TIME, 9L VIA OXYMASK IN PLACE. BOWEL TONES HYPOACTIVE. SKIN GROSSLY INTACT WITHOUT EDEMA. IV SITES INTACT, PATENT, AND SALINE LOCKED. PT ABLE TO VOID 25ML YELLOW URINE INTO URINAL, HE WANTED TO TRY TO USE BSC, BUT WAS NOT STRONG ENOUGH TO STAND. REPOSITIONED PT IN BED. PT'S DAUGHTER AINSLEY CALLED FOR UPDATE. PT IN VIEW OF NURSES' STATION.
--- NOTE | 2020-10-14 22:05 | NUR ---
TITRATED OXYGEN TO 7L FOR SPO2 OF 100%. PT RESTING MORE CALMY AND APPEARS MORE COMFORTABLE. PT DENIES NEED TO VOID. BED ALARM REMAINS ON FOR SAFETY.
--- NOTE | 2020-10-14 22:17 | NUR ---
PT REPOSITIONED ONTO RIGHT SIDE WITH PILLOW SUPPORT. SMALL SMEAR OF STOOL NOTED ON BUTTOCKS, PERICARE PROVIDED AND NEW ATTENDS AND CHUX PLACED UNDER PT. BED ALARM REMAINS ON FOR SAFETY.
--- NOTE | 2020-10-14 22:59 | NUR ---
HEARD PT PULLING ON BP CUFF, IN TO CHECK ON HIM AND FOUND THAT HE HAD PULLED OUT FIELD START IV FROM RIGHT WRIST. CATHETER TIP INTACT, BANDAGE APPLIED. ATTENDS STILL DRY AND PT DENIES NEED TO VOID, BLADDER SCAN FOR 120ML.
--- NOTE | 2020-10-15 00:54 | NUR ---
PT SLEEPING SOUNDLY AT THIS TIME. TITRATED OXYGEN TO 3L OXYMASK FOR SPO2 OF 100%. PT APPEARS COMFORTABLE AND VITAL SIGNS STABLE. WILL ALLOW FOR REST AND CONTINUE TO MONITOR.
--- NOTE | 2020-10-15 01:52 | NUR ---
PT HAD PULLED MASK OFF FACE, ON RA SPO2:88-89%. PLACED 3L BACK ON PT AND SPO2 NOW 95%. PT WOKE UP WHILE I WAS DOING THIS, DENIES NEEDS. STATES HE HAS NOT BEEN SLEEPING WELL. REMOVED PILLOW FROM BEHIND PT, NOW POSITIONED SUPINE WITH LEGS ELEVATED ON PILLOWS.
--- NOTE | 2020-10-15 03:44 | NUR ---
PT INCONTINENT OF URINE, WHILE BEING CHANGED, PT FELT THAT HE NEEDED TO VOID AND WAS ABLE TO USE URINAL WITH ASSISTANCE. PT MORE INTERACTIVE, REMAINS ORIENTED TO SELF. DENIES PAIN. LUNGS REMAIN CLEAR, ATTEMPTED ROOM AIR, BUT AFTER ABOUT 5 MINUTES, SPO2 WAS 86% SO 3L O2 VIA OXYMASK WAS PLACED BACK ON PT, SPO2 NOW 98%. HR IRREGULAR, RATE 60-70'S. BOWEL TONES ACTIVE. PT REPOSITIONED TO LEFT SIDE WITH PILLOW SUPPORT, PILLOW UNDER LEGS PER PT REQUEST. IV SALINE LOCKED AND INTACT. BED ALARM REMAINS ON FOR SAFETY.
--- NOTE | 2020-10-15 06:47 | NUR ---
IN TO START ZOSYN INFUSION. PT FELT LIKE HE NEEDED TO VOID AND STATES HE USUALLY HAS A BM IN THE MORNING AND WANTED TO SIT ON TOILET. UP TO BSC WITH 1-PA AND FWW. PT UNSUCCESSFUL ON BSC SO ASSISTED BACK TO BED. PT ABLE TO VOID 100ML CONCENTRATED URINE IN URINAL. DENIES FURTHER NEEDS, BED ALARM ON.
--- NOTE | 2020-10-15 07:42 | NUR ---
REPORT RECEIVED FROM NIGHTSHIFT RN. THIS RN IN TO CHECK ON PT. PT LAYING IN BED, IV ABX INFUSING ORDERED. PT AWAKE AT THIS TIME AND DENIES PAIN. PT REPORTS NO FURTHER NEEDS WHEN ASKED, WILL CONTINUE PLAN OF CARE. CALL LIGHT IN REACH, BED IN LOWEST POSITION, IV ABX INFUSING ORDERED.
--- NOTE | 2020-10-15 08:04 | NUR ---
THIS RN IN TO ASSESS PT. PT AWAKE AND ALERT ANSWERING QUESTIONS APPROPRIATELY. PT ORIENTED TO SELF, MONTH, AND YEAR. PT AWARE HE'S IN HOSPITAL BUT NOT ORIENTED TO LOCATION OR EVENT. PT DENIES PAIN AT THIS TIME WHEN ASKED. IV ABX INFUSING ORDERED. PT ON 3L O2 OXYMASK, SPO2 AT 98%. PT ASSESSED AT THIS TIME, PULSES STRONG, LUNGS CLEAR, RR AT 12. PT REPORTS NO FURTHER NEEDS AT THIS TIME AND WAS GIVEN ICE WATER. PT SAT UP TO DRINK WATER AND HAD COUGHED AFTER TAKING A FEW SIPS. IMAGING NOW IN TO ASSESS HEART. CALL LIGHT IN REACH, IV ABX INFUSING, IMAGING IN ROOM, WILL CONTINUE PLAN OF CARE.
--- NOTE | 2020-10-15 09:45 | NUR ---
PT IN ROOM AWAKE AND ALERT TALKING TO DAUGHTER. PT. PLACED DOWN TO 2L O2 NC AT THIS TIME. PT HAD ASKED TO CHANGED TO A NASAL CANULA THE OXYMASK WAS UNCOMFORTABLE. PT WAS AT 99% ON 3L SO HE WAS TITRATED DOWN TO 2L. SPO2 NOW AT 98%. PT REPORTS NO FURTHER NEEDS AT THIS TIME, WILL CONTINUE PLAN OF CARE. CALL LIGHT IN REACH, BED IN LOWEST POSITION.
--- NOTE | 2020-10-15 11:15 | NUR ---
DR. OCAMPO INFORMED ME OF PT'S PLAN OF CARE AND PLAN TO TRANSFER TO THE MEDICAL SURGICAL FLOOR, NEW ORDERS FOR DYSPHAGIA DIET, AND HOW THE PT HAS BEEN ABLE TO MAINTAIN SATURATIONS ON ROOM AIR. WILL CONTINUE PLAN OF CARE.
--- NOTE | 2020-10-15 12:09 | NUR ---
THIS RN IN TO ADMINISTER ORDERED MEDICATIONS. PT LAYING IN BED AWAKE AND ALERT. IV ABX INFUSING AT THIS TIME STILL, PT ON ROOM AIR, SPO2 AT 92%. PT ALERT AND ORIENTED X3 PT HAD A DIFFICULT TIME REMEMBERING LOCATION BUT WAS ABLE TO RECALL IT ON HIS OWN. PT ANSWERING QUESTIONS APPROPRIATELY AT THIS TIME. MEDICATIONS GIVEN ORDERED, PT TOLERATED PO MEDS WELL BY BEING SAT UP. PILLS GIVEN WITH APPLESAUCE. PT ASSESSED AT THIS TIME WELL. DURING ASSESSMENT PT INFORMED ME HE HAD TO VOID, URINAL USED BY PT TO VOID, PT DID NOT HAVE A BOWEL MOVEMENT. PT REPORTS NO FURTHER NEEDS AND WAS UPDATED ON THE PLAN OF CARE AND PLANS TO TRANSFER TO THE MEDICAL SURGICAL FLOOR. WILL CONTINUE PLAN OF CARE. CALL LIGHT IN REACH, BED IN LOWEST POSITION.
--- NOTE | 2020-10-15 12:55 | NUR ---
THIS RN IN TO TRANSFER PT TO THE MED/SURG FLOOR. PT DISCONNECTED FROM MONITORS AND TAKEN TO THE FLOOR VIA BED WITH BELONGINGS. PT ALERT AND ORIENTED ON ROOM AIR AND SALINE LOCKED. PT HANDED OFF TO СВЕТЛАНА COLLADO TO CONTINUE PLAN OF CARE.
--- NOTE | 2020-10-15 13:13 | NUR ---
PT RECEIVED FROM CCU. PT ON ROOM AIR, LUNG SOUNDS CLEAR WITH DIM BASES. BOWEL TONES ACTIVE, EATING LUNCH, DOES NOT LIKE THE GROUND DIET OR THICKENED LIQUIDS. PT WITH REDNESS TO RIGHT LOWER LEG, SLIGHTLY WARMER COMPARED TO LEFT LEG, CMS INTACT. VSS. PT DENIES OTHER NEEDS AT THIS TIME, CALL LIGHT WITHIN REACH, BED ALARM IN PLACE.
--- NOTE | 2020-10-15 15:38 | NUR ---
pt assisted to chair from bathroom, 1pa with fww. chair alarm in place.
--- NOTE | 2020-10-15 18:12 | NUR ---
PT TRANSFERED FROM CCU TODAY. PT ON ROOM AIR, LUNG SOUNDS CLEAR AND DIMINISHED. PT WITH HX OF DEMENTIA, FORGETFUL, CHAIR AND BED ALARM ARE IN PLACE. PT HAD SPEECH EVAL, CONTINUE WITH GROUND DIET AND SUGGESTED NECTAR THICK IF PT IS UNABLE TO REMEMBER TO TUCK CHIN FOR THIN LIQUIDS. PT UP WITH 1PA WITH FWW, AMBULATING TO BATHROOM, WALKED IN [place]BRON WITH P.T. IV ZOSYN, OTHERWISE SALINE LOCKED.
--- NOTE | 2020-10-15 21:04 | NUR ---
COMPLIANCE TECHNICIAN ROUNDING NOTE. PT MOTIONS CONSUMER INSIGHTS SPECIALIST INTO ROOM. INQUIRES ABOUT BRUSHING HIS TEETH. PT UP TO BATHROOM AND TO BED WITH 1PA AND FWW. PT TOLERATED WELL. PT NEEDS FREQUENT INSTRUCTIONS FOR TASKS. ASKING MULTIPLE QUESTIONS ABOUT CLOTHES FROM HOME AND SHOES. BED ALARM ACTIVE. TV TURNED OFF. ROOM IN VIEW OF RN STATION. CALL LIGHTIN REACH. WHITEBOARD UPDATED.
--- NOTE | 2020-10-15 22:27 | NUR ---
VITALS AND I&O COMPLETED. PATIENT WOULD TALK WITH ME WITH GOOD SPIRIT. LIGHTS TURNED DOWN. PATIENT ENCOURAGED TO GET SOME SLEEP. CALL LIGHT IN REACH.
--- NOTE | 2020-10-15 23:45 | NUR ---
patient's bed alarm went off and patient states he is trying to use restroom. 1pa with fww to bathroom. patient tolerates well and only needs significant assistance in and out of bed. back to bed. patient is easily confused by simple things. the table being moved to the other side of bed discombobulated him. this return agent airport reoriented and instructed patient to rest. call light in reach.
--- NOTE | 2020-10-15 23:50 | NUR ---
PT RESTING IN BED, EYES CLOSED. RR EVEN, UNLABORED. CALL LIGHT IN REACH.
--- NOTE | 2020-10-16 01:15 | NUR ---
PT RESTING IN BED, EYES CLOSED. RR EVEN, UNLABORED. CALL LIGHT IN REACH.
--- NOTE | 2020-10-16 06:47 | NUR ---
ASSESSMENT, VS AND I&O COMPLETED. GCS 15, ORIENTED TO PERSON AND . LUNGS CLEAR, HEART TONES IRREGULAR. ABD SOFT, NONTENDER, BOWEL TONES ACTIVE. IV DRESSING CHANGED, IV MED PROVIDED. CMS INTACT. REDNESS NOTED ON BLE. BRUISE NOTED ON LEFT HAND. SCHEDULED MED PROVIDED. PT UP TO BR, SBA FWW, BACK TO BED. NO OTHER NEEDS AT THIS TIME. CALL LIGHT IN REACH.
--- NOTE | 2020-10-16 07:10 | NUR ---
BEDSIDE HANDOFF REPORT RECEIVED FROM GUEST SERVICES REPRESENTATIVE RN. PT RESTING IN BED. PT DENIES NEEDS AT THIS TIME.
--- NOTE | 2020-10-16 08:30 | NUR ---
PT WORKING WITH Camille, HELPED TO BATHROOM ,HAD LOOSE INCONTINENT STOOL, PERICARE PROVIDED. PT NOW WALKING IN LEBRON WITH Wyatt.
--- NOTE | 2020-10-16 09:05 | NUR ---
PT SITTING IN CHAIR, EATING BREAKFAST, JUST COMPLETED WALKING WITH P.T. PT ON ROOM AIR, LUNG SOUNDS CLEAR WITH DIMINISHED BASES. PT WITH INFILTRATED IV TO LEFT ARM, INFUSION STOPPPED, WILL RESTART IV AFTER BREAKFAST. BOWEL TONES ACTIVE, HAD LOOSE STOOL TODAY, MIRALAX AND SENNA HELD. PT WITH EDEMA AND REDNESS BLE, REDNESS WORSE IN RLE. PT DENIES OTHER NEEDS AT THIS TIME. CHAIR ALARM IN PLACE.
--- NOTE | 2020-10-16 10:05 | NUR ---
PT IV IN HIS LEFT FORARM WAS INFLILTRATED. A 20 GAUGE IV WAS STARTED IN THE PT RIGHT WRIST. FLUSHED WITH 5ML NS. FLUSHES WELL. GOOD BLOOD RETURN. IV COVERED WITH A WINDOW DRESSING. PT TOLERATED THIS WELL.
--- NOTE | 2020-10-16 11:17 | NUR ---
PT ASKING ABOUT CLOTHING, STSTES HIS DAUGHTER IS COMING AND THEY ARE GOING OUT FOR LUNCH, REORIENTED. PT PROVIDED WITH PJ BOTTOMS. PT DENIES OTHER NEEDS AT THIS TIME. IV SALINE LOCKED. CHAIR ALARM IN PLACE.
--- NOTE | 2020-10-16 11:34 | NUR ---
PT DANILO GOUT OF CHAIR, ASSISTED TO BATHROOM, VOIDED AND HAD SMALL BM, PERICARE PERFORMED. ASSISTED BACK TO CHAIR FOR LUNCH. CHAIR ALARM IN PLACE.
--- NOTE | 2020-10-16 14:20 | NUR ---
PT RESTIGN IN BED. IV ZOSYN INFUSING. AFTERNOON ASSESSMENT COMPLETED, NO ACUTE CHANGES. PT DENIES OTHER NEEDS AT THIS TIME, BED ALARM IN PLACE.
--- NOTE | 2020-10-16 18:26 | NUR ---
PT FORGETFUL AND IMPULSIVE AT TIMES. PT ON ROOM AIR, LUNG SOUNDS CLEAR. PT WITH REDNESS TO RLE, DR. OCAMPO DIAGNOSED WITH CELLULITIS, CONTINUE ZOSYN. PT UP WITH 1PA WITH FWW. VOIDING QS, HAD LOOSE BM TODAY, HELD BOWEL MEDS. BED ALARM AND CHAIR ALARM.
--- NOTE | 2020-10-16 19:06 | NUR ---
RECEIVED REPORT FROM СВЕТЛАНА COLLADO. pt ATTEMPTING TO GET OUT OF BED. ABLE TO REDIRECT. WHITEBOARD UPDATED. NO REQUESTS AT THIS TIME. CURTAIN OPEN TO NURSES STATION.
--- NOTE | 2020-10-16 19:14 | NUR ---
BED ALARMING. ACCOUNTING POLICY CONSULTANT IN TO ASSIST pt. UP IN LEBRON TO WALK WITH ACCOUNTING POLICY CONSULTANT.
--- NOTE | 2020-10-16 19:45 | NUR ---
PT FOUND TO BE REMOVING COBAN FROM IV SITE. IV SITE REWRAPPED WITH COBAN. ENCOURAGED PT TO LEAVE IN PLACE. PT STATES UNDERSTANDING. CALL LIGHT IN REACH. BED ALARM ACTIVE. ROOM IN VIEW OF RN STATION.
--- NOTE | 2020-10-16 20:00 | NUR ---
PT FOUND WITH BED ALARM SOUNDING, ATTEMPTING TO GET LEGS OUT OF BED. PT ASSISTED TO WALK INTO THE BATHROOM AND BACK TO BED WITH 1 PA AND FWW. PT DENIES FURTHER NEEDS AT THIS TIME. BED ALARM ACTIVE. CALL LIGHT IN REACH. ROOM IN VIEW OF RN STATION. WHITE BOARD UPDATED.
--- NOTE | 2020-10-16 20:59 | NUR ---
JUNITO WILLAMS IN ROOM 1:1 WITH pt AT THIS TIME. ASSESSMENT DONE. pt DENIED PAIN UNTIL LEGS TOUCHED, THEN COMPLAINED OF PAIN "ALL OVER" pt QUICKLY CHANGED SUBJECT TO SUNSET. pt ORIENTED TO SELF. UNABLE TO NAME FACILITY AFTER HE WAS TOLD [facility] HE REPLIED "BUT THAT'S IN [place]! WHERE IS THIS PLACE, RIGHT HERE?" pt TOOK MEDICATION WITHOUT ISSUE. pt READY TO LAY DOWN THEN REQUESTED TO GET UP TO VOID. GENERALIST REMAINS WITH pt.
--- NOTE | 2020-10-16 22:10 | NUR ---
IN TO GIVE ANTIBIOTIC. pt GETTING OUT OF BED. VOID X1. SBA FWW. BACK TO BED. ANTIBIOTIC INFUSING PER ORDERS. pt RESTING IN BED WITH BED ALARM ON. CALL LIGHT WITHIN REACH.
--- NOTE | 2020-10-16 23:19 | NUR ---
ROUNDED ON pt. RESTING IN BED WITH EYES CLOSED, RESPIRATIONS REGULAR AND UNLABORED. CALL LIGHT WITHIN REACH. BED ALARM ON. IV INFUSING.
--- NOTE | 2020-10-17 00:20 | NUR ---
ROUNDED ON pt. RESTING IN BED WITH EYES CLOSED, RESPIRATIONS REGULAR AND UNLABORED. IV INFUSING. CALL LIGHT WITHIN REACH. BED ALARM ON.
--- NOTE | 2020-10-17 02:00 | NUR ---
ROUNDED ON pt. RESTING IN BED WITH EYES CLOSED, RESPIRATIONS REGULAR AND UNLABORED. CALL LIGHT WITHIN REACH. BED ALARM ON
--- NOTE | 2020-10-17 02:48 | NUR ---
IV INFUSION COMPLETED. SL. pt RESTING WITH EYES CLOSED, RESPIRATIONS REGULAR AND UNLABORED. CALL LIGHT WITHIN REACH. BED ALARM ON.
--- NOTE | 2020-10-17 05:18 | NUR ---
ROUNDED ON pt. RESTING IN BED WITH EYES CLOSED, RESPIRATIONS REGULAR AND UNLABORED. CALL LIGHT WITHIN REACH. BED ALARM ON.
--- NOTE | 2020-10-17 06:53 | NUR ---
LAB INTO DRAW. pt UNHAPPY ABOUT NEEDLES. AGREEABLE TO CARE IF NO NEEDLES ARE INVOLVED. IV ANTIBIOTIC INFUSING. pt UP TO VOID, 1PA FWW. INCONT OF URINE AND AN UNMEASURED VOID IN TOILET. FRESH DEPENDS AND LINENS. pt RESTING IN BED WITH WARM BLANKETS. NO CHANGE TO ASSESSMENT. CALL LIGHT WITHIN REACH. BED ALARM ON.
--- NOTE | 2020-10-17 06:57 | NUR ---
PATIENT WAS RESTING IN BED WITH EYES CLOSED, APPEARED TO BE SLEEPING HARD. REQUIRED FULL BERTIN AND CLOTHES CHANGE. 1PA WITH FWW TO BATHROOM. BACK TO BED. BED ALARM ON. PATIENT FELL BACK TO SLEEP ALMOST INSTANTLY. WARM BLANKETS PROVIDED. CALL LIGHT WITHIN REACH.
--- NOTE | 2020-10-17 07:05 | NUR ---
bedside report from Tari powell. resp rate reg, eyes closed, RA appears comfortable. call light in reach
[2020-10-17] MEDS ORDERED: TORSEMIDE5 MG PO (11:13)
[2020-10-17] MEDS ORDERED: AUGMENTIN 875-1 EACH PO (11:13)
[2020-10-17] MEDS ORDERED: PROBIOTIC1 EAC5 PO (11:14)
[2020-10-17] MEDS ORDERED: POTASSIUM CHLO10 MEQ PO (11:15)
--- NOTE | 2020-10-17 11:22 | NUR ---
pt up to amb to br with pt and staff 1 person fww assist. inc of urine - then to chair. pt inappropriately touched the pt staff - pt reached out and touched her in the groin area - was re directed and told that it was not ok by both staff - as reported to me by the brim raiser and pt. rn in room for transfer from bathroom to chair. Dr joaquin was in room with this rn previously to this activity.
--- NOTE | 2020-10-17 11:55 | NUR ---
pt up in for ground soft meal, call light in reach.
--- NOTE | 2020-10-17 16:21 | NUR ---
PATIENT REFUSED SHOWER WITH 3 CNAS AND AN RN. WILL REAPPROACH LATER.
--- NOTE | 2020-10-17 16:30 | NUR ---
pt up in , confused - hollers at staff when they try to help him with his iv wrap for shower - able to calm - but now he refuses shower.
--- NOTE | 2020-10-17 17:45 | NUR ---
pt admitted and has resolved hypoxia secondary to chf, on ra, plan to dc home in am. has improved chronic diastolic heart failure and right lower extrimity cellulites. he has current dementia and alzheimers with mood disorder - today in an attempt to ambutlate with PT and staff he was inappropriate and touched the therapsit - again when attempting to shower him, he makes inappropriate sexual comments- easily re directed. bm and inc of urine today - up in , chopped moist foods for meals. call family 1 hour prior to discharge as they are transporting to facility. [facility] care.
--- NOTE | 2020-10-17 19:15 | NUR ---
BEDSIDE REPORT RECEIVED FROM OFFGOING RNGOVIND. PT SITTING UP IN CHAIR. CHAIR ALARM ACTIVE. CALL LIGHT IN REACH. ROOM IN VIEW OF RN STATION WITH CURTAIN OPEN.
--- NOTE | 2020-10-17 20:45 | NUR ---
PT PULLED IV OUT, FOUND SITTING ON BEDSIDE TABLE. SR. PAYROLL PROCESSOR NOTIFIED HOSPITALIST BY PHONE. OK TO LEAVE IV OUT PER MD.
--- NOTE | 2020-10-17 22:00 | NUR ---
PT ASSESSMENT COMPLETE. PT RESTINGIN BED WITH EYES OPEN. PLEASANTLY CONFUSED. PT ABLE TO TAKE SCHEDULED MEDCIATION WITH APPLE SAUCE. DENIES PAIN, NAUSEA, OR SOB. PT INCONTINENT OF URINE, ASSISTED PT TO CHANGE ATTENDS. PT ABLE TO LIFT BOTTOM OFF OF BED. PT ALSO USES URINAL IN BED WITH MINIMAL ASSISTANCE. PT DENIES FURTHER NEEDS AT THIS TIEM. CALL LIGHT IN REACH. BED ALARM ACTIVE. ROOM IN VIEW OF RN STATION WITH CURTAIN OPEN.
--- NOTE | 2020-10-18 00:42 | NUR ---
PT RESTING IN BED WITH EYES CLOSED. RESPIRATIONS EVEN AND UNLABORED. PT APPEARS TO BE SLEEPING. CALL LIGHT IN REACH. ROOM IN VIEW OF RN STATION. BED ALARM ACTIVE.
--- NOTE | 2020-10-18 03:30 | NUR ---
PT RESTING IN BED WITH EYES CLOSED. RESPIRATIONS EVEN AND UNLABORED. PT APPEARS TO BE SLEEPING. CALL LIGHT IN REACH. ROOM IN VIEW OF RN STATION WITH CURTAIN OPEN. BED ALARM ACTIVE.
--- NOTE | 2020-10-18 06:22 | NUR ---
PT ASSESSMENT COMPLETE. PT DENIES PAIN WHEN LEGS AREN'T TOUCHED. PT REPORTS PAIN WHEN LEGS ARE TOUCHED. PT DENIES NAUSEA OR SOB. PT WITH OCCASIONAL COUGH DURING ASSESSMENT. LUNG SOUNDS CLEAR. REDNESS TO BLE'S IMPROVED. SWELLING TO RLE, GENERALIZED. ATTENDS IN PLACE FOR INCONTINENCE. ICE WATER REFILLED. PT DENIES FURTHER NEEDS. CALL LIGHT IN [facility]. ROOM IN VIEW OF RN STATION WITH CURTAIN OPEN. BED ALARM ACTIVE.
--- NOTE | 2020-10-18 08:32 | NUR ---
PT AWAKE IN BED. UP TO CHAIR FOR BREAKFAST 1 PA W/ FWW. MORNING MEDICATIONS GIVEN W/ APPLESAUCE. PT FOLLOW DIRECTIONS MODERATELY WELL. ORIENTED TO SELF AND HOME. DISORIENTED TO DATE, TIME, EVENTS AND CURRENT PLACE. LUNG SOUNDS CLEAR. TRACE EDEMA IN BLE W/ SLIGHT REDNESS TO RLE, REPORTEDLY IMPROVED ACCORDING TO ARMED SECURITY GUARD RN ELVIA. VSS. PT DENIES PAIN OR NAUSEA THIS AM. BOWEL TONES ARE ACTIVE. EATING BREAKFAST AT THIS TIME. PLAN TO DC BACK TO [facility] TODAY. CHAIR ALARM ON, CALL LIGHT IN REACH THOUGH PT DOES NOT CALL APPROPRIATELY.
--- NOTE | 2020-10-18 10:08 | NUR ---
PATIENT IN CHAIR FOR BREAKFAST. PATIENT DRESSED AND READY TO DC. VITALS AND I&O'S CHARTED. CALL LIGHT IN REACH. NO FURTHER NEEDS AT THIS TIME.
--- NOTE | 2020-10-18 10:30 | NUR ---
BP LOW, RECHECKED AND 104/58 HR 72. VSS OVERALL. PT IS SLEEPING ON AND OFF IN CHAIR THIS AM, AWAKENS TO VOICE THOUGH MUST TALK LOUDLY PT IS HARD OF HEARING. LUNG SOUNDS ARE CLEAR, DIMINISHED IN BASES. 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 EDEMA AND REDNESS IMPROVED IN RLE, NOW TRACE REDNESS/EDEMA NOTED. BOWEL TONES ACTIVE, PT AT TIMES USES URINAL APPROPRIATELY, INCONTINENT AT BASELINE. PT DENIES PAIN OR NAUSEA. REMAINS PLEASANTLY CONFUSED, ORIENTED TO SELF AND [place] DAUGHTER AINSLEY UPDATED AND WILL BE BY TO PICK PT UP AND DRIVE TO [facility].
--- NOTE | 2020-10-18 10:39 | NUR ---
CONTACTED LESA FROM [facility] TO UPDATE ON PATIENTS DISCHARGE STATUS. PER LESA OKDEE FOR PATIENT TO RETURN TO [facility] TODAY. WILL FAX DISCHARGE ORDERS WHEN COMPLETED AND UPDATE LESA IF ANY CHANGES OCCUR.
--- NOTE | 2020-10-18 11:15 | NUR ---
PT DAUGHTER AINSLEY UPDATED ON PT PLAN OF CARE AND DC INSTRUCTIONS. PT WILL NEED F/U APPT SCHEDULED, DAUGHTER STATES HE WILL ALSO SEE DR CONTEH NEXT WEEK AND THAT PT HAS HAD HX OF POOR CIRCULATION IN FEET AND REQUIRES NAIL CARE. PT PIVOT TRANSFERRED TO WHEELCHAIR W/ FWW. WHEELED OUT BY FIELD COURT RESEARCHER AND DAUGHTER TO DRIVE TO [facility].
--- NOTE | 2020-10-18 11:36 | NUR ---
ATTEMPTED TO CALL [facility] ABOUT PT DC INSTRUCTIONS, MEDICATIONS AND FOLLOW UP, NO ANSWER, LEFT MESSAGE ON ADMIN VOICEMAIL.
--- NOTE | 2020-10-18 13:18 | NUR ---
THIS RN WAS ABLE TO REACH TINO RAYTLE COKEMAN AND GIVE UPDATE ON PT PLAN OF CARE. ASKED TO CALL [facility] AND CANCEL PRESCRIPTION FILL SO THAT [facility] COULD REQUEST STAT FILL THROUGH MAIL. FLOR STATED THEY WOULD BE ABLE TO RECEIVE MEDICATIONS SAME DAY. CALLED KYLEE FROM PHARMACY TO REQUEST [facility] CANCELLATION.
== END 2020-10-18 11:15 | disposition home or self-care (01) | DRG 291 ==
LOC: ED 06:35 → CCU 11:03 → MS 10-15 12:55
PROVIDERS: ADMIT Internal Medicine; ATTEND Internal Medicine
DX: I50.33 Acute on chronic diastolic (congestive) heart failure (principal); J96.01 Acute respiratory failure with hypoxia; I48.21 Permanent atrial fibrillation; N13.8 Other obstructive and reflux uropathy; L03.115 Cellulitis of right lower limb; R78.81 Bacteremia; Z20.822 Contact with and (suspected) exposure to COVID-19; I50.813 Acute on chronic right heart failure; K57.90 Diverticulosis of intestine, part unspecified, without perforation or abscess without bleeding; E78.5 Hyperlipidemia, unspecified; K21.9 Gastro-esophageal reflux disease without esophagitis; M54.9 Dorsalgia, unspecified; N40.1 Benign prostatic hyperplasia with lower urinary tract symptoms; B95.4 Other streptococcus as the cause of diseases classified elsewhere; R35.0 Frequency of micturition; G30.9 Alzheimer's disease, unspecified; F02.80 Dementia in other diseases classified elsewhere, unspecified severity, without behavioral disturbance, psychotic disturbance, mood disturbance, and anxiety; K59.09 Other constipation; Z66 Do not resuscitate; Z87.891 Personal history of nicotine dependence; Z79.899 Other long term (current) drug therapy; Z79.01 Long term (current) use of anticoagulants; Z88.8 Allergy status to other drugs, medicaments and biological substances; Z88.5 Allergy status to narcotic agent; Z88.7 Allergy status to serum and vaccine
CPT/HCPCS: 36415; 36600; 51702; 71045; 71260; 80048; 80053; 81001; 82803; 83605; 83735; 83880; 84484; 85025; 85379; 85610; 87040; 87502; 92610; 93005; 93010; 93306; 94640; 97110; 97116; 97162; 97530; 99285-25; J1940; J1956; J2060; J2543; Q9967; U0003

== ENCOUNTER 2021-01-06 10:15 | Inpatient (IN) | payer MEDICARE, OTHER ==
[~2021-01-06] VITALS: Ht 175.3 cm; Wt 86.8 kg
[~2021-01-06 10:15] MED LIST changes: +ARICEPT5 MG PO; +ARTHRICREAM85 GM TOP; +AUGMENTIN 875-1 EACH PO; +HYDROCHLOROTHIA25 MG PO; +POTASSIUM CHLO10 MEQ PO; +PROBIOTIC1 EAC5 PO; +SENNA-S 8.6-501 EACH PO; +TORSEMIDE5 MG PO
[2021-01-06] MEDS ORDERED: FAMOTIDINE40 MG PO (15:13)
[2021-01-06] MEDS ORDERED: ACIDOPHILUS1 EAC4 PO (15:14)
--- NOTE | 2021-01-06 15:51 | NUR ---
PT ARRIVES URINE SOAKED AND ON 15L NON-REBREATHER. PT TITRATED TO 3L NC ON ARRIVAL. PT REPORTS HE IS TIRED AND FALLS ASLEEP. WHEN ASKED QUESTIONS HE REPORTS "I DON'T KNOW". PT DENIES PAIN ON ARRIVAL. DR. VAZQUEZ UPDATED REGUARDING PTS RESPIRATORY STATUS.
--- NOTE | 2021-01-06 16:00 | NUR ---
PT IN ROOM LAYING IN BED. DENIES NEEDS AT THIS TIME. CALL LIGHT IN REACH. RAILS IN UP POSITION.
--- NOTE | 2021-01-06 17:13 | NUR ---
PT CONTINUES TO SLEEP IN BED. CALL LIGHT IN PTS HAND. BED RAILS IN UP POSITION.
--- NOTE | 2021-01-06 17:28 | NUR ---
PT PROVIDED DINNER. DENIES NEEDS AT THIS TIME. PT IN ROOM SLEEPING.
--- NOTE | 2021-01-06 19:50 | NUR ---
IN TO ASSIST pt WHO IS MOVING LEGS TO THE SIDE OF THE BED. pt REQUESTED WATER, PROVIDED, HOB ELEVATED FOR SAFE SWALLOWING, pt REQUESTED IT BE IMMEDIATELY LOWERED. pt THEN ATTEMPTED TO PULL IV. EDUCATED ON WHY HE HAS AN IV AND REDIRECTED. pt REQUESTED THIS RN LEAVE THE ROOM SO HE COULD REST. CALL LIGHT WITHIN REACH. BED ALARM ON.
--- NOTE | 2021-01-06 20:50 | NUR ---
PATIENT ATTENDS HEAVILY WET WITH URINE. ATTENDS CHANGED. CELIA CARE DONE. PATIENT TOLERATES CARE POORLY. DIFFICULT TO REORIENT AND SLIGHTLY COMBATIVE. BED LINEN CHANGED. PATIENT CHANGED TO PULSE OX ONLY. LUNG SOUNDS ARE DIM BUT CLEAR. ON 2L NC. TOLERATES PILLS WITH SOME DIFFICULTY. DENIES PAIN. IV SITE SL, WNL. BED ALARM ACTIVE. HOB AT 30 DEGREES. CALL LIGHT IN REACH. WARM BALNKET PROVIDED.
--- NOTE | 2021-01-06 21:30 | NUR ---
PT HERE TO THE FLOOR FROM CCU, WITH FLOAT RN, CHANGED ATTENDS, WATER PROVIDED AT THIS TIME, BED ALARM IS SET, NO FURTHER NEEDS
--- NOTE | 2021-01-06 21:40 | NUR ---
PT PLACED ON CPOX. SPO2 94% ON 3L NC. PT ORIENTED TO ROOM AND CALL LIGHT. IV WNL. PT DENIES SOB AT THIS TIME. BLE EDEMA NOTED. ICE WATER PROVIDED. NO OTHER NEEDS AT THIS TIME. BED ALARM ON.
--- NOTE | 2021-01-06 23:48 | NUR ---
PT RESTING IN BED, EYES CLOSED. RR EVEN, UNLABORED. CPOX 94% ON 3L NC. CALL LIGHT IN REACH, BED ALARM ON.
--- NOTE | 2021-01-07 01:08 | NUR ---
PT BRIEFS CHANGED. ICE WATER PROVIDED. PT REPOSITIONED. SPO2 94% ON 3L NC. NO OTHER NEEDS. CALL LIGHT IN REACH.
--- NOTE | 2021-01-07 02:44 | NUR ---
PT REPOSITIONED. ASSESSMENT COMPLETED. PT NOT ORIENTED TO PLACE, TIME OR EVENTS, CAN TELL YOU HIS NAME. LUNGS COURSE, HEART TONES REGULAR. IV WNL, CDI, FLUSHED WELL. LLE HAS 2+ EDEMA, RLE HAS 1+ EDEMA. EXTREMITIES HAVE APPROPRIATE COLOR AND PULSES. NC @ 3L, SPO2 95%. ABD SOFT, NONTENDER, BOWEL TONES ACTIVE. NO OTHER NEEDS AT THIS TIME. CALL LIGHT IN REACH.
--- NOTE | 2021-01-07 04:15 | NUR ---
VS AND I&O COMPLETED. PT REPOSITIONED. PT IS VERBALLY AGGRESSIVE TOWARDS STAFF DURING CARES. BRIEFS CHANGED. NO OTHER NEEDS. CALL LIGHT IN REACH.
--- NOTE | 2021-01-07 04:30 | NUR ---
IN TO REPOSITON PT, CHECK FOR INCONT, NEW ATTENDS ON, VITALS DONE, ICE WATER REFRESHED AT THIS TIME, NO FURTHER NEEDS AT THIS TIME
--- NOTE | 2021-01-07 07:30 | NUR ---
THIS RN RECEIVED REPORT FROM HELGA SOTOMAYOR. PT APPEARS TO BE RESTING COMFORTABLY AT THIS TIME WITH CPOX IN PLACE
--- NOTE | 2021-01-07 08:45 | NUR ---
THIS RN IN PTS ROOM WITH LESVIA WILD TO ASSIST WITH REPOSITIONING PT. PT APPEARS TO BE ONLY ORIENTED TO HIMSELF THIS AM. PT ABLE TO FOLLOW COMMANDS WELL AND DOESN'T HAVE ANY CONCERNS TO NOTE AT THIS TIME. PT TO SIT UP IN BED AND EAT HIS BREAKFAST.
--- NOTE | 2021-01-07 08:52 | NUR ---
2PA, PATIENT INCONT OF URINE. VITALS AND I&OS CHARTED. RN OTTONIEL IN FOR MORNING MEDS. PATIENT SITTING UP IN BED FOR BREAKFAST. CALL LIGHT IN EASY REACH
--- NOTE | 2021-01-07 11:35 | NUR ---
SPOKE WITH DAUGHTER AINSLEY BY PHONE [phone]. SHE STATES PATIENT IS BASELINE CONFUSED BUT HAS BEEN MUCH MORE SO LAST WEEK OR SO. SHE STAES HE IS AMBULATORY ON OWN WITH WALKER, TOILETS SELF USUALLY BUT SOMETIMES NEEDS ASSIST. HE HAS HAD SOME INCONTINENCE THIS PAST WEEK WITH INCREASED CONFUSION. [facility] DOES ALL HIS MEDICATIONS. HE NORMALLY IS ABLE TO FEED HIMSELF WHEN FOOD IS PROVIDED. DR BLANCA IS STILL PCP. SHE STATES HE IS SCHEDULED FOR HIS INR DRAW AT [facility] SUNDAY AND SHE KNOWS HE CANNOT GO IN IF HE IS OUT OF HOSPITAL. WONDERS IF WE CAN GET IT HERE OR ORDER IT AT [facility] SOMEHOW. SHE STATES THEIR PREFERNCE FOR DISCHARGE WOULD BE TO RETURN TO [facility]. SHE SPOKE WITH [facility] THERE THIS MORNING AND THEY ARE OK WITH THIS. SHE STATES THEY TAKE VERY GOOD CARE OF HIM. DISCUSSED SHE CAN CALL NURSES STATION ANYTIME FOR UPDATES OR WITH CONCERNS. SHE STATES "I HAVE BEEN SO IMPRESSED WITH ALL YOU GUYS ARE DOING FOR THESE PATIENTS". SHE HAS NO QUESTIONS AT THIS TIME.
--- NOTE | 2021-01-07 12:30 | NUR ---
THIS RN IN PTS ROOM TO GIVE PT HIS REMDESIVIR. THIS RN NOTED THAT PT HAD DC HIS OWN IV. THIS RN RESTARTED PTS IV. PT GOT A BIT ANGRY WITH THE TROURNAQUET. THIS RN ABLE TO TALK PT OUT OF IT. OTHER MEDS GIVEN AT THIS TIME AND PT REPOSITIONED TO OFF LOAD PRESSURE AND GET MORE COMFORTABLE. PT APPEARS TO BE RESTING PRIOR TO THIS RN LEAVING ROOM.
--- NOTE | 2021-01-07 14:55 | NUR ---
PATIENT RESTING IN BED, VITALS AND I&OS CHARTED. PATIENT INCONTINENT OF URINE AND STOOL. COMPLETE BED CHANGE, PATIENT VERY HARD OF HEARING AND AGITATED AT TIMES WHEN CELIA AREA IS BEING CLEANED. CALL LIGHT IN REACH, NO OTHER NEEDS AT THIS TIME
--- NOTE | 2021-01-07 15:00 | NUR ---
THIS RN IN PTS ROOM TO DO ASSESSMENT AND MOVE OFF IV FLUIDS. PT HAD THROWN HIS SOME OF HIS FOOD ON THE FLOOR AND SEEMED A BIT AMPED UP. PT STATED TAHT HE NEEDED TO URINATE, THIS RN ATTEMPTED TO PUT URINAL NEAR PTS PENIS BUT PT HAD A BLOW OUT BM AND POOP WAS UP OVER HIS PENIS. THIS RN CALLED FOR LESVIA TO ASSIST TO CLEAN PT UP. PT ATTEMPTING TO BE VIOLENT BY TRYING TO HIT BUT THIS RN TOLD PT "NO" PT APPEARS TO HAVE SENSITIVE TESTICLES, STAFF ATTEMPTED TO CLEAN WITH CARE BUT PT HAD AN XL SIZE BM. PT AT ONE POINT ATTEMPTED TO PULL ON THIS RNS FRONT OF SCRUB TOP. THIS RN TOOK PTS HAND AND TOLD HIM "NO" PT SMILED THIS RN DISCUSSED WITH PT THAT VIOLENCE TOWARDS STAFF IS NOT A LAUGHING MATTER. PT ONE POINT MOUTHED "I LOVE YOU" TO THIS RN. PT LEFT IN COMFORTALBE POSITION WITH CPOX IN PLACE PT SATING 91-93% ON 1L.
--- NOTE | 2021-01-07 17:00 | NUR ---
THIS RN IN PTS ROOM TO GIVE PT HIS EVENING MED. THIS RN REPOSITIONED PT IN ORDER FOR HIM TO BE ABLE TO EAT DINNER SITTING UP. PT TOLERATING WELL AND HAS NO COMPLAINTS AT THIS TIME.
--- NOTE | 2021-01-07 19:15 | NUR ---
SHIFT REPORT RECEIVED FROM OTTONIEL SOTOMAYOR. PT RESTING IN BED, BED ALARM ON. SPO2 94% ON 1L NC. NO NEEDS AT THIS TIME. CALL LIGHT IN REACH.
--- NOTE | 2021-01-07 21:15 | NUR ---
ASSESSMENT, VS AND I&O COMPLETED. SCHEDULED MEDS PROVIDED EXCEPT BOWEL MEDS PT HAD A LARGE BM TODAY. PT ORIENTED TO SELF ONLY. PT SAYS INNAPPROPRIATE THINGS TOWARDS FEMALE STAFF AND TRIES TO TOUCH STAFF, ATTEMPTED TO REDIRECT. LUNGS CLEAR. SPO2 94% ON 1L NC. HEART TONES REGULAR. ABD SOFT, NONTENDER, BOWEL TONES ACTIVE. CMS INTACT. GENERALIZED EDEMA IN BLE. IV WNL, COVERED WITH SACHIN BANDAGE. ICE WATER PROVIDED. BRIEFS CHANGED. CPOX ON. NO OTHER NEEDS. CALL LIGHT IN REACH.
--- NOTE | 2021-01-07 23:37 | NUR ---
PT CPOX ALARMING. NEW SPO2 STICKER APPLIED. NO OTHER NEEDS. CALL LIGHT IN REACH, BED ALARM ON.
--- NOTE | 2021-01-08 01:25 | NUR ---
PT RESTING IN BED, EYES CLOSED. RR EVEN, UNLABORED. SPO3 93% ON 1L. BED ALARM ON, CALL LIGHT IN REACH.
--- NOTE | 2021-01-08 02:50 | NUR ---
in with rn to check pts attends for incont, pt was dry, assisted pt with urinal, no further needs at this time, bed alarm remains on, cpox wnl
--- NOTE | 2021-01-08 02:58 | NUR ---
ASSESSMENT COMPLETED. LUNGS CLEAR IN ALL LOBES BUT DIMINISHED IN LOWER LOBES. IV WNL. CMS INTACT. PT USED URINAL. WATER PROVIDED. NO OTHER NEEDS. CPOX 94% ON 1L. CALL LIGHT IN REACH.
--- NOTE | 2021-01-08 05:15 | NUR ---
VS AND I&O COMPLETED. CELIA PAD CHANGED. NO OTHER NEEDS. SPO2 93% ON 1L. CALL LIGHT IN REACH.
--- NOTE | 2021-01-08 07:30 | NUR ---
THIS RN RECIEVED REPORT FROM HELGA SOTOMAYOR. PT APPEARS TO BE RESTING AT THIS TIME WITH REPSITATIONS NOTED AND PULSE OX IN PLACE.
--- NOTE | 2021-01-08 08:20 | NUR ---
PATIENT IS SITTING UP IN THE BED. WARM WASHCLOTH OFFERED AND TAKEN. BED BATH REFUSED. CALL LIGHT WITH IN REACH. NO FURTHER NEEDS AT THIS TIME.
--- NOTE | 2021-01-08 08:30 | NUR ---
THIS RN IN PTS ROOM TO CHECK ON PT AND GET HIM SET UP FOR BREAKFAST. PT STATES THAT HE IS READY FOR SOME FOOD AND IS FEELING WELL THIS AM
--- NOTE | 2021-01-08 09:30 | NUR ---
THIS RN IN PTS ROOM TO GIVE PT HIS AM MEDS. PT HAD A XL BM YESTERDAY. THIS AM THIS RN WILL HOLD PTS BM MEDS DUE TO PTS FACILITY TELLING THIS RN THAT HE HAS ONE EVERY 3 DAYS AT HOME.
--- NOTE | 2021-01-08 12:30 | NUR ---
THIS RN IN PTS ROOM TO PROVIDE PT WITH HIS MIDDAY MEDS. PT SITTING UPRIGHT IN BED AND STATES THAT HE IS DONE WITH HIS MEAL. THIS RN STARTED PTS MED. PT STATES THAT HE DOENS'T NEED ANYTHING ELSE AT THIS TIME.
--- NOTE | 2021-01-08 13:30 | NUR ---
HERIBERTO VALDEZA AND CHAVA SOTOMAYOR ABLE TO GET PT UP TO CHAIR BY 2P SBA. PT TOLERATED WELL AND APPEARS TO BE TOLERATING WELL CPOX STILL IN PLACE
--- NOTE | 2021-01-08 19:36 | NUR ---
REPORT RECEIVED FROM DAY SHIFT RN. PT SITTING IN RECLINER ALERT. RESPIRATIONS EVEN. SpO2 92%. HR 80'S. NO NEEDS AT THIS TIME. CALL LIGHT IN REACH.
--- NOTE | 2021-01-08 21:00 | NUR ---
PT SITTING IN RECLINER UPON ENTERING ROOM. ORIENTED TO SELF ONLY. PT BACK TO BED WITH 1PA ASSIST. AT SIDE OF BED TO ATTEMPT TO VOID BUT UNSUCCESSFUL. BRIEF IN PLACE. PT DENNY WELL. EVENING ASSESSMENT COMPLETE. SCHEDULED MEDS ADMINISTERED PER EMAR. PT RA. SpO2 94%. RESPIRATIONS EVEN. PT DENIES SOB OR CP. LUNGS DIM IN BASES. PT DENIES PAIN OR NAUSEA. CPOX IN PLACE. NO FURTHER NEEDS AT THIS TIME. CALL LIGHT IN REACH.
--- NOTE | 2021-01-08 22:48 | NUR ---
PT AWAKE IN BED. SpO2 NOTED TO BE 88-89% ON RA. 1L/NC PLACED. SpO2 UP TO 92-93%. RESPIRTATIONS EVEN. PT DENIES SOB.
--- NOTE | 2021-01-08 23:53 | NUR ---
PT LYING IN BED RESTING WITH EYES CLOSED. SpO2 93% ON 1L/NC. HR 60'S. NO APPARENT DISTRESS. BED ALARM FOR SAFETY. CALL LIGHT IN REACH.
--- NOTE | 2021-01-09 00:34 | NUR ---
BED ALARM SOUNDING. PT UP TO SIDE OF BED TO VOID 175 ML CONCENTRATED URINE WITH SBA. BACK TO BED, DENNY WELL. BED ALARM FOR SAFETY. CALL LIGHT IN REACH.
--- NOTE | 2021-01-09 03:03 | NUR ---
CALL LIGHT ANSWERED. PT CONCERNED ABOUT THE "DOOR MOVING". ORIENTATION AND REASSURANCE PROVIDED. PT RECEPTIVE. O2 1L/NC IN PLACE. SpO2 94-96%. RESPIRATIONS EVEN AND NON LABORED. PT DENIES FURTHER NEEDS AT THIS TIME. CALL LIGHT IN REACH. BED ALARM FOR SAFETY.
--- NOTE | 2021-01-09 03:32 | NUR ---
CALL LIGHT ANSWERED. PT UP TO SIDE OF BED WITH FWW AND SBA TO VOID 125 ML CONCENTRATED URINE. BACK TO BED, DENNY WELL. BED ALARM FOR SAFETY. CALL LIGHT IN REACH.
--- NOTE | 2021-01-09 06:38 | NUR ---
PT AWAKE RESTING IN BED. REMOVED OXYGEN CANNULA BY SELF. SpO2 92% ON RA. RESPIRATIONS EVEN. PT DENIES PAIN OR SOB. ASSISTED TO REPOSITION IN BED. BED ALARM FOR SAFETY. CALL LIGHT IN REACH.
--- NOTE | 2021-01-09 10:11 | NUR ---
IN ROOM FOR MEDS AND ASSESSMENT. PT IS PLEASANTLY CONFUSED, KNOWS HE IS IN [place] AND THAT IT IS SUNDAY, OTHERWISE DISORIENTED, ORIENTED TO SELF. LUNG SOUNDS ARE DIM BUT CLEAR IN ALL LOBES EXCEPT LLL; SOME FINE CRACKLES HEARD. SPO2 ON RA FROM 93-96%. PT IS UP IN CHAIR; ASKS FOR "VICKS FOR HIS STUFFY NOSE". PT REQUESTS COFFEE WHICH IS PROVIDED. PT TAKES ORAL MEDICATIONS WITH ENCOURAGEMENT. VSS. PT BELIEVES HE IS AT HOME. CALL LIGHT WITHIN REACH AND PT REORIENTED ON HOW TO USE IT. NO FURTHER CARE NEEDS AT THIS TIME.
--- NOTE | 2021-01-09 10:50 | NUR ---
CHECKED ON PT. PT IS UP IN CHAIR, WATCHING TV. NO APPARENT SIGNS OF DISTRESS. WILL CONTINUE TO MONITOR.
--- NOTE | 2021-01-09 12:04 | NUR ---
IN ROOM TO HANG IV REMDESIVIR. IV FLUSHES WELL. PD DECADRON ADMINISTERED AT THIS TIME WELL. PT IS UP IN CHAIR, WATCHING TV, WAITING ON LUNCH. CALL LIGHT WITHIN REACH.
--- NOTE | 2021-01-09 14:30 | NUR ---
IN ROOM PT HAD WAVED TO STAFF OUTSIDE OF ROOM. SBA TO STAND TO URINATE IN URINAL. PT WAS VERY UNDECIDED ON WHERE HE WANTED TO SIT/IF HE WANTED TO LAY DOWN ETC. PT WAS DEFIANT ON PUTTING HIS SHOES ON. CURRENTLY PT IS LAYING IN BED WITH SHOES ON, BED ALARM ON FOR SAFETY. CALL LIGHT WITHIN REACH.
--- NOTE | 2021-01-09 16:00 | NUR ---
IN ROOM TO ADMINISTER SCHEDULED MED. ASSESSMENT COMPLETE. TRACE TO 1+ EDEMA IN BLE. PT IS LAYING IN BED WITH LEGS ELEVATED. FAINT EXPIRATORY WHEEZE HEARD IN LUNGS. WILL CONSULT RT. PT'S SPO2 DOES DIP TO 90-92% WHEN PT LAYS IN BED. PT REMAINS CONFUSED WHICH IS COMPOUNDED BY HIS HEARING STATUS. WILL CONTINUE TO MONITOR. BED ALARM ON FOR SAFETY.
--- NOTE | 2021-01-09 16:54 | NUR ---
pt WAS ENTERING HALLWAY OUT OF ISOLATION ROOM UNASSISTED. PT DID HAVE HIS FWW BUT IS UNABLE TO LEAVE THE ROOM D/T COVID POSITIVE STATUS. THIS RN ASSISTED PT BACK IN TO ROOM AND INTO CHAIR. CHAIR ALARM INSTALLED. PT COULD NOT SAY WHY HE WANTED TO GO INTO HALLWAY OR WHAT HE NEEDED. CHAIR ALARM REMAINS ON.
--- NOTE | 2021-01-09 19:24 | NUR ---
REPORT RECEIVED FROM DAY SHIFT RN. PT SITTING IN RECLINER. CHAIR ALARM IN PLACE. SpO2 91% ON RA. RESPIRATIONS EVEN. DENIES NEEDS AT THIS TIME. CALL LIGHT IN REACH.
--- NOTE | 2021-01-09 21:00 | NUR ---
V/S AND I&O DONE. ASSISTED USING URINAL. PATIENT IS IN BED NOW. BED ALARM ON FOR SAFETY.
--- NOTE | 2021-01-09 21:38 | NUR ---
PT SITTING IN RECLINER. ORIENTED TO SELF. SBA WITH FWW TO VOID 200 ML. BACK TO BED, DENNY WELL. EVENING ASSESSMENT COMPLETE. SCHEDULED MEDS ADMINISTERED PER EMAR. PT DENIES PAIN OR SOB. 93-97% ON RA DURING ASSESSMENT. RESPIRATIONS EVEN. LUNG SOUNDS DIM. CPOX IN PLACE. PT DENIES FURTHER NEEDS. CALL LIGHT IN REACH. BED ALARM FOR SAFETY.
--- NOTE | 2021-01-09 23:18 | NUR ---
PT RESTING IN BED WITH EYES CLOSED. RESPIRATIONS EVEN. SpO2 90-92% ON RA. HR 60'S.
--- NOTE | 2021-01-10 01:36 | NUR ---
PT RESTING IN BED WITH EYES CLOSED. CPOX IN PLACE. SpO2 90-92% ON RA. HR 60'S. RESPIRATIONS EVEN. BED ALARM FOR SAFETY. CALL LIGHT IN REACH.
--- NOTE | 2021-01-10 04:29 | NUR ---
PT IN BED RESTING WITH EYES CLOSED. LYING ON LEFT SIDE. SpO2 90-93% ON RA. HR 60'S. RESPIRATIONS EVEN. BED ALARM IN PLACE.
--- NOTE | 2021-01-10 06:00 | NUR ---
MORNING LABS DRAWN PER PROTOCOL. VS AND I&O COMPLETE. PT INCONTINENT OF LARGE AMOUNT OF URINE AND MEDIUM SOFT BM. CELIA CARE DONE. CLEAN BRIEF PLACED. WARM BLANKET PROVIDED. PT DENIES PAIN OR SOB. SpO2 94% ON RA. HR 60'S. DR. LOPEZ IN TO SEE PT. NO FURTHER NEEDS AT THIS TIME. CALL LIGHT IN REACH. BED ALARM FOR SAFETY.
[2021-01-10] MEDS ORDERED: DEXAMETHASONE6 MG PO (07:17)
[2021-01-10] MEDS ORDERED: ACIDOPHILUS1 EAC4 PO (09:03)
[2021-01-10] MEDS ORDERED: TORSEMIDE10 MG PO (09:03)
[2021-01-10] MEDS ORDERED: TYLENOL EXTRA500 MG PO (09:04)
--- NOTE | 2021-01-10 09:08 | NUR ---
Patient just waking up for the day. Face washed and fresh water provided. Breakfast ordered. Patient has no notable distress. No pain reported at this time. No needs. Personal supplies and call light within reach.
--- NOTE | 2021-01-10 09:08 | NUR ---
MED REC COMPLETE
--- NOTE | 2021-01-10 09:18 | NUR ---
patient will not wake up, he will respond back to this cnas questions, he is telling me to go away, he will not get up to go to the bathroom, he doesn't want this restorative rehab aide to help him, he is currently upright in bed, breakfast infront of him!
--- NOTE | 2021-01-10 10:00 | NUR ---
PATIENT TOLD THIS [employer] MANA[employer]ED [employer] SALES EXEC TO GET OUT OF THE ROOM, HE DID NOT WANT THIS [employer] EX[employer] TO TAKE HIS BLOOD PRESSURE, HE DID NOT ALLOW THIS [employer] EXEC TO CHECK IF HE HAD ANY OUTPUT, NURSE WAS MADE AWARE
--- NOTE | 2021-01-10 12:00 | NUR ---
PATIENT WAS NOT REALLY INTERESTED IN HIS LUNCH, HE DID NOT WANT TO USE THE RESTROOM, NURSE WAS AWARE, THIS FIFTH HAND AND NURSE WENT INTO THE ROOM AND CHANGED THE PATIENTS ATTEND
--- NOTE | 2021-01-10 12:13 | NUR ---
Patient resting, eyes closed, respirations even and non labored. Patient remains on room air, sp02 92%. No distress and or needs. Personal supplies and call light within reach.
--- NOTE | 2021-01-10 14:00 | NUR ---
PATIENT WANTED NO ASSISTANCE, NURSE CALLED DOWN A DINNER MEAL FOR PATIENT, PATIENT IS VERY BABIN, DOES NOT WANT ANY CARES DONE AT THIS TIME
--- NOTE | 2021-01-10 16:10 | NUR ---
Patient watching tv at this time, alert to self. Patient denies pain. No distress noted. Fresh water at bedside. Patient remains on room air, sp02 92%. No needs.
--- NOTE | 2021-01-10 19:20 | NUR ---
REPORT RECEIVED FROM DAY SHIFT RN. PT LYING IN BED WITH EYES CLOSED. SpO2 95% ON RA. RESPIRATIONS EVEN. HR 60'S. BED ALARM FOR SAFETY. CALL LIGHT IN REACH.
--- NOTE | 2021-01-10 19:30 | NUR ---
PATIENT USED THE CALL LIGHT. WENT IN TO THE ROOM AND CHECKED WHAT PATIENT NEEDS. THIS BUILDING OFFICIAL HAVE TO ASK IN WRITING DUE TO PATIENT HAVE A HARD OF HEARING. PATIENT IS INCONTINENT OF URINE AND BOWEL MOVEMENT. WIPED AND CLEANED AND CHANGED DRAW SHEET, WHITE CHUCKS AND ATTENDS. PATIENT STATED "ANYTHING FOR SNACK? OFFERED PUDDING. ICE WATER REFILLED. BED ALARM ON FOR SAFETY. V/S AND I&O DONE AND RECORDED.
--- NOTE | 2021-01-10 21:04 | NUR ---
EVENING ASSESSMENT COMPLETE. SCHEDULED MEDS ADMINISTERED PER EMAR. BOWEL MEDS HELD DUE TO MULTIPLE BM'S TODAY. PT ORIENTED TO SELF. PLEASANTLY CONFUSED. DENIES PAIN OR SOB. LUNG SOUNDS DIM. SpO2 95% ON RA. HR 60'S. RESPIRATIONS EVEN. ASSISTED PT TO REPOSITION IN BED. EXTRA BLANKETS PROVIDED. DENIES FURTHER NEEDS. CPOX IN PLACE. CALL LIGHT IN REACH. BED ALARM FOR SAFETY.
--- NOTE | 2021-01-10 22:51 | NUR ---
PT RESTING IN BED WITH EYES CLOSED, RESPIRATIONS EVEN. SpO2 95% ON RA. BED ALARM ON.
--- NOTE | 2021-01-11 00:45 | NUR ---
PT LYING IN BED RESTING WITH EYES CLOSED, NO APPARENT DISTRESS.
--- NOTE | 2021-01-11 02:51 | NUR ---
PT RESTING IN BED WITH EYES CLOSED. RESPIRATIONS EVEN. SpO2 95% ON RA. HR 60'S. BED ALARM FOR SAFETY. CALL LIGHT IN REACH.
--- NOTE | 2021-01-11 05:20 | NUR ---
VS AND I&O COMPLETE. PT INCONTINENT OF LARGE AMOUNT URINE AND SMALL AMOUNT SOFT STOOL. ASSISTED TO VOID 300 ML IN URINAL. CELIA CARE DONE BY STAFF. CLEAN BRIEF IN PLACE. ASSISTED PT TO REPOSITION IN BED. PT DENIES PAIN OR SOB. 94% ON RA. FRESH WATER PROVIDED. NO FURTHER NEEDS. BED ALARM FOR SAFETY. CALL LIGHT IN REACH.
--- NOTE | 2021-01-11 07:30 | NUR ---
Texted Summer at [facility] as pt was dcd yesterday and they could not accept. She states pt can return today and they would like as soon as possible. Faxed signed orders, H&P,DC summary, and rx to Summer. Called [facility] and they are unable to transport. Called and spoke with Soumya in facilities, they will be able to transport at 0830. Updated broker in charge and they will have pt ready and at the back entrance. Notified Summer, pt will transport at 0830.
== END 2021-01-11 08:30 | DRG 177 ==
LOC: ED 10:15 → CCU 14:38 → MS 14:38
PROVIDERS: ADMIT Student in an Organized Health Care Education/Training Program; ATTEND Student in an Organized Health Care Education/Training Program
PROC: 8E0ZXY6 Isolation (ICD-10-PCS; principal; 2021-01-06)
PROC: 3E0333Z Introduction of Anti-inflammatory into Peripheral Vein, Percutaneous Approach (ICD-10-PCS; 2021-01-06)
PROC: XW033E5 Introduction of Remdesivir Anti-infective into Peripheral Vein, Percutaneous Approach, New Technology Group 5 (ICD-10-PCS; 2021-01-07)
DX: U07.1 COVID-19 (principal); J96.01 Acute respiratory failure with hypoxia; J12.82 Pneumonia due to coronavirus disease 2019; I50.33 Acute on chronic diastolic (congestive) heart failure; I48.21 Permanent atrial fibrillation; Z66 Do not resuscitate; F39 Unspecified mood [affective] disorder; F03.90 Unspecified dementia, unspecified severity, without behavioral disturbance, psychotic disturbance, mood disturbance, and anxiety; K21.9 Gastro-esophageal reflux disease without esophagitis; R13.10 Dysphagia, unspecified; E78.5 Hyperlipidemia, unspecified; M17.10 Unilateral primary osteoarthritis, unspecified knee; N40.0 Benign prostatic hyperplasia without lower urinary tract symptoms; Z87.891 Personal history of nicotine dependence; Z98.890 Other specified postprocedural states; Z88.7 Allergy status to serum and vaccine; Z88.5 Allergy status to narcotic agent; Z88.8 Allergy status to other drugs, medicaments and biological substances; Z79.899 Other long term (current) drug therapy; Z79.01 Long term (current) use of anticoagulants
CPT/HCPCS: 71045; 71260; 80053; 80500; 83735; 84484; 85025; 85610; 94760; 99285-25; A9270; J1100; J1940; J7050; J8540; Q9967

== ENCOUNTER 2021-02-23 13:37 | Emergency (ER) | payer MEDICARE, OTHER ==
[~2021-02-23] VITALS: Ht 175.3 cm; Wt 99.8 kg
[~2021-02-23 13:37] MED LIST changes: +ACIDOPHILUS1 EAC4 PO; +DEXAMETHASONE6 MG PO; +TORSEMIDE10 MG PO
[2021-02-23] MEDS ORDERED: ACIDOPHILUS1 EAC4 PO (14:43)
--- NOTE | 2021-02-23 22:05 | EKG ---
[facility] [address] [facility] [place], [place] [address] Signed Atrial fibrillation Right bundle branch block Abnormal ECG When compared with ECG of 23-FEB-2021 14:11, (Unconfirmed) Confirmed by JOE LOPEZ MD ([id number]) on 02/23/2021 10:05:18 PM Electronically Signed By: JOE LOPEZ MD [id number] PATIENT NAME: ELAINE DONATO WINNIE Electrocardiogram DATE OF : 32 PHYSICIAN: JOE LOPEZ MD REPORT #: [id number] REPORT IS CONFIDENTIAL AND NOT TO BE RELEASED WITHOUT AUTHORIZATION
== END 2021-02-23 18:06 | disposition home or self-care (01) ==
LOC: ED 13:37
DX: R06.00 Dyspnea, unspecified (principal); R09.02 Hypoxemia; I48.91 Unspecified atrial fibrillation; K21.9 Gastro-esophageal reflux disease without esophagitis; E78.5 Hyperlipidemia, unspecified; Z87.891 Personal history of nicotine dependence; Z88.8 Allergy status to other drugs, medicaments and biological substances; Z88.5 Allergy status to narcotic agent; Z79.899 Other long term (current) drug therapy; Z79.01 Long term (current) use of anticoagulants
CPT/HCPCS: 71045; 80053; 83880; 84484; 85025; 85610; 93005; 93010; 94761; 99285-25